=== PATIENT | female | born 1975 | race Caucasian/White ===

== ENCOUNTER 2018-03-11 04:21 | Emergency (ER) | payer OTHER, SELFPAY ==
[2018-03-11 04:22] VITALS: BP 135/75; PULSE 104; RESP 20; TEMP 36.8; O2SAT 99; BMI 21.3
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
[2018-03-11 05:09] VITALS: BP 135/75; PULSE 104; RESP 20; O2SAT 97
== END 2018-03-11 05:24 | disposition home or self-care (01) ==
LOC: ED 05:03
PROVIDERS: Emergency Provider Emergency Medicine
DX: S80.12XA Contusion of left lower leg, initial encounter (principal); S80.11XA Contusion of right lower leg, initial encounter; S80.812A Abrasion, left lower leg, initial encounter; S80.811A Abrasion, right lower leg, initial encounter; V89.2XXA Person injured in unspecified motor-vehicle accident, traffic, initial encounter; Y93.89 Activity, other specified; Z72.0 Tobacco use
CPT/HCPCS: 99284; A4216

== ENCOUNTER 2020-02-06 08:01 | Outpatient (RCR) | payer OTHER, SELFPAY | END 2020-02-06 23:59 | disposition home or self-care (01) | LOC: EMPH 08:01 | PROVIDERS: Visit Provider Family Medicine Geriatric Medicine | DX: Z11.59 Encounter for screening for other viral diseases (principal) | CPT/HCPCS: 87635; U0003 ==

== ENCOUNTER 2020-03-05 08:57 | Outpatient (RCR) | payer OTHER, SELFPAY | END 2020-03-09 23:59 | LOC: EMPH 08:57 | PROVIDERS: Visit Provider Family Medicine Geriatric Medicine | DX: Z03.818 Encounter for observation for suspected exposure to other biological agents ruled out (principal) | CPT/HCPCS: 87426 ==

== ENCOUNTER 2020-04-01 14:11 | Outpatient (RCR) | payer OTHER, SELFPAY | END 2020-04-08 23:59 | LOC: EMPH 14:11 | PROVIDERS: Visit Provider Family Medicine Geriatric Medicine | DX: Z03.818 Encounter for observation for suspected exposure to other biological agents ruled out (principal) | CPT/HCPCS: 87426 ==

== ENCOUNTER → 2021-01-15 | Outpatient (CLI) | payer OTHER, SELFPAY | END | disposition home or self-care (01) | LOC: LABSPEC 13:46 | PROVIDERS: Visit Provider Physician Assistant | DX: Z20.822 Contact with and (suspected) exposure to COVID-19 (principal) | CPT/HCPCS: 87635; U0005; U0003 ==

== ENCOUNTER → 2021-10-01 | Outpatient (CLI) | payer OTHER, SELFPAY ==
[2021-10-01 14:27] LABS: Absolute Lymphocyte Count 2.03 X10^3/uL (0.83-4.51); Absolute Neutrophil Count 4.9 X10^3/uL (2.0-7.7); Basophil# 0.05 X10^3/uL; Basophil% 0.6 % (0-1); Eosinophil# 0.13 X10^3/uL; Eosinophils% 1.7 % (0-5); Hematocrit 42.7 % (37-47); Hemoglobin 14.1 g/dL (12.0-15.0); Lymphocyte # 2.03 X10^3/ul (0.83-4.51); Lymphocyte % 26.1 % (19-41); Mean Corpuscular Volume 90.9 fL (81-99); Mean Platelet Vol. 8.6 fl (6.2-12.0); Monocyte# 0.61 X10^3/uL; Monocyte% 7.9 % (0-10); NRBC Flagged by Analyzer 0 % (0-5); Neutrophil # 4.93 X10^3/uL (2.7-7.7); Neutrophil % 63.4 % (47-70); Platelet Count 286 K/mm3 (150-450); RBC Distribution Width CV 12.8 % (11.6-14.6); RBC Distribution Width SD 43.2 fl (35.1-43.9); White Blood Count 7.8 K/mm3 (4.4-11.0)
[2021-10-01 14:48] LABS: Thyroid Stim Hormone (TSH) 0.89 uIU/mL (0.358-3.74)
[2021-10-08 09:21] LABS: HPV APTIMA, High Risk Negative (Negative)
== END | disposition home or self-care (01) ==
LOC: PAVLAB 14:09
PROVIDERS: Referring Provider Nurse Practitioner Women's Health; Visit Provider Nurse Practitioner Women's Health
DX: Z13.29 Encounter for screening for other suspected endocrine disorder (principal); Z12.4 Encounter for screening for malignant neoplasm of cervix; N92.0 Excessive and frequent menstruation with regular cycle
CPT/HCPCS: 36415; 84443; 85025; 87624; 88175; G0145

== ENCOUNTER → 2021-10-10 | Outpatient (CLI) | payer OTHER, SELFPAY ==
--- NOTE | 2021-10-10 12:13 | BI_ITS ---
MAMMOGRAPHY - BILATERAL SCREENING REASON FOR EXAM: Female, 46 years old. Routine annual screening examination. PERTINENT HISTORY: Non-contributory. TECHNIQUE: Digital bilateral breast erwin (3D mammographic acquisition) in the CC and MLO projections. 2-D mediolateral oblique (MLO) and craniocaudad (CC) views of both breasts were obtained. CAD: Full Field Digital Mammography with Computer Added Detection was performed. COMPARISON: None. Baseline examination. FINDINGS: Breast Composition: The breasts are extremely dense, which lowers the sensitivity of mammography. There are no dominant masses or suspicious calcifications. No other significant abnormalities are identified. BI/SCRN MAMM (CAD)W/ERWIN BILAT IMPRESSION: Negative screening mammogram. Yearly followup mammogram recommended. (A) ASSESSMENT CATEGORY: BIRADS Category 1: Negative. A letter regarding these results will be sent to the patient by the facility within 30 days. Approximately 10% of breast cancers are not detected by mammography. A normal mammogram should not delay biopsy of a clinically suspicious abnormality. [id number] Electronically Signed: Adán Vazquez MD at 12:55 EDT ,
== END | disposition home or self-care (01) ==
LOC: OPBI 12:10
PROVIDERS: Referring Provider Nurse Practitioner Women's Health; Visit Provider Nurse Practitioner Women's Health
DX: Z12.31 Encounter for screening mammogram for malignant neoplasm of breast (principal)
CPT/HCPCS: 77063; 77067

== ENCOUNTER → 2021-10-13 | Outpatient (CLI) | payer OTHER, SELFPAY ==
--- NOTE | 2021-10-13 12:57 | US_ITS ---
STUDY: ULTRASOUND OF THE FEMALE PELVIS - COMPLETE REASON FOR EXAM: Female, 46 years old. Pelvic pain -- BLEEDING X 1 YEAR -- MENORRHAGIA -- HX OF ECTOPIC 1999 -- CLIPS ON TUBES 2000 LMP: Unknown. TECHNIQUE: Transabdominal and Transvaginal TECHNICAL QUALITY: Adequate. COMPARISON: None. FINDINGS: The uterus is anteverted and is in a midline position. The uterus measures 9.1 cm x 6.2 cm x 4 cm. Normal uterine cervix. The endometrium is thickened and measures 13 mm in thickness, and is fluid distended. There is no demonstrated endometrial mass. There is no demonstrated myometrial mass. I.U.D. - The patient does not have an I.U.D. The right ovary is visualized. The right ovary measures 3.2 cm x 1.9 cm x 1.4 cm. A dominant follicle is seen within it measuring 1.4 cm x 1.3 cm x 1.1 cm. There is no visualized right adnexal mass or complex lesion. There is normal arterial and normal venous vascularity. The left ovary is visualized. The left ovary measures 2.7 cm x 2 cm x 1.5 cm. The dominant follicle is seen measuring 1.3 cm x 1.1 cm x 1 cm. There is no visualized left adnexal mass or complex lesion. There is normal arterial and normal venous vascularity. There is no fluid in the cul-de-sac. The pre void volume of the bladder was 110 ml. US/Transvaginal Non- IMPRESSION: Fluid distended endometrial thickening. Small bilateral ovarian follicles. Electronically Signed: Adán Vazquez MD at 15:47 EDT ,
--- NOTE | 2021-10-13 12:57 | US_ITS ---
STUDY: ULTRASOUND OF THE FEMALE PELVIS - COMPLETE REASON FOR EXAM: Female, 46 years old. Pelvic pain -- BLEEDING X 1 YEAR -- MENORRHAGIA -- HX OF ECTOPIC 1999 -- CLIPS ON TUBES 2000 LMP: Unknown. TECHNIQUE: Transabdominal and Transvaginal TECHNICAL QUALITY: Adequate. COMPARISON: None. FINDINGS: The uterus is anteverted and is in a midline position. The uterus measures 9.1 cm x 6.2 cm x 4 cm. Normal uterine cervix. The endometrium is thickened and measures 13 mm in thickness, and is fluid distended. There is no demonstrated endometrial mass. There is no demonstrated myometrial mass. I.U.D. - The patient does not have an I.U.D. The right ovary is visualized. The right ovary measures 3.2 cm x 1.9 cm x 1.4 cm. A dominant follicle is seen within it measuring 1.4 cm x 1.3 cm x 1.1 cm. There is no visualized right adnexal mass or complex lesion. There is normal arterial and normal venous vascularity. The left ovary is visualized. The left ovary measures 2.7 cm x 2 cm x 1.5 cm. The dominant follicle is seen measuring 1.3 cm x 1.1 cm x 1 cm. There is no visualized left adnexal mass or complex lesion. There is normal arterial and normal venous vascularity. There is no fluid in the cul-de-sac. The pre void volume of the bladder was 110 ml. US/Pelvic (Non ) IMPRESSION: Fluid distended endometrial thickening. Small bilateral ovarian follicles. Electronically Signed: Adán Vazquez MD at 15:47 EDT ,
== END | disposition home or self-care (01) ==
LOC: US 12:56
PROVIDERS: Referring Provider Nurse Practitioner Women's Health; Visit Provider Nurse Practitioner Women's Health
DX: N85.2 Hypertrophy of uterus (principal); N83.01 Follicular cyst of right ovary; N83.02 Follicular cyst of left ovary; R93.89 Abnormal findings on diagnostic imaging of other specified body structures
CPT/HCPCS: 76830; 76856; 93976

== ENCOUNTER → 2021-10-24 | Outpatient (CLI) | payer OTHER, SELFPAY ==
--- NOTE | 2021-10-24 | EMB_PTH ---
PATIENT: SANDRA SINGLETARY LOC: [facility] U#:[id number] AGE/SX: 46/F ROOM: RE10/24/[address]: Dr. 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 Focal stromal breakdown. AM:leeanna 10/27/2021 MICROSCOPIC DESCRIPTION Slides are reviewed. GROSS DESCRIPTION Received is one container labeled with the patient's name and not further designated. The specimen consists of multiple irregular fragments of li mucoid tissue that in aggregate measure 2.5 x 2 x 0.1 cm. The specimen is totally submitted in one cassette. / SJ:leeanna 10/24/2021 TC:5 CPT: 92584
== END | disposition home or self-care (01) ==
LOC: LABSPEC 11:59
PROVIDERS: Referring Provider Obstetrics & Gynecology; Visit Provider Obstetrics & Gynecology
DX: N85.01 Benign endometrial hyperplasia (principal); N93.9 Abnormal uterine and vaginal bleeding, unspecified
CPT/HCPCS: 88305

== ENCOUNTER 2021-11-25 12:36 | Day surgery (SDC) | payer OTHER, SELFPAY ==
--- NOTE | 2021-11-24 16:36 | HP.PCM_ITS ---
History and Physical Intake Vital Signs ? 10/01/2212:41 10/14/2208:15 10/24/2209:21 Height 5 ft 5 in 5 ft 5 in 5 ft 5 in Weight: ? 125 lb ? BMI ? 20.7 ? BP ? 128/70 H ? 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 And Repairer Required: No Is patient in pain?: No Allergies No Known Allergies Allergy (Verified 10/01/21 13:34) Medications cetirizine 10 mg capsule (Zyrtec) 10 mg PO DAILY PRN 10/01/21 [History Confirmed 10/24/21] multivitamin with minerals (Hair,Skin and Nails) 1 tab PO DAILY 10/01/21 [History Confirmed 10/24/21] norethindrone acetate 5 mg tablet (Aygestin) 5 mg PO .COMPLEX #45 tabs 10/01/21 [Rx Confirmed 10/24/21] pseudoephedrine HCl 30 mg tablet (Sudafed) 30 mg PO ONCE 10/01/21 [History Confirmed 10/24/21] megestrol 40 mg tablet 40 mg PO BID #60 tabs 10/24/21 [Rx Confirmed 10/24/21] Is last menstrual period known: No Post menopausal: No Patient : No : No Nurse's Note: declines UPT ON LICENSE OF [facility] Surgical History? H/O tubal ligation History of cholecystectomy S/P removal of ovarian cyst Family History? Mother COPD (chronic obstructive pulmonary disease) Alzheimer's dementia Heart disease HypertensionFather Heart disease Aortic aneurysmGrandmother Heart disease Diabetes CancerUncle Lung cancer Social History? household members:? children current occupational status:? employed current occupation:? [employer] Smoking Status:? Current every day smoker alcohol intake:? never substance use type:? does not use diet:? other what type of physical activity do you participate in:? walking frequency:? 3-4 times per week seatbelt use:? always do you feel safe at home:? Yes additional social history:? single HPI discuss surgical options Details: SANDRA SINGLETARY is a 46 year old who presents for heavy irregular bleeding.? she has a lifetime history of heavy menses but the last year has included bleeding most days and now she has been on aygestin 2-3x daily and is still bleeding through.? she has intermittent cramping and tried aygestin but is still having breakthrough bleeding and wants to have surgical management of her heavy menses. Pregancy History ? ? ? 5 ? Elective abortions ? Hx Para ? ? ? 3 ? Spontaneous abortions ? Hx # Term Pregnancies ? Ectopic pregnancies ? Hx # Pregnancies ? Multiple births ? # of living children ? ? ? 3 ROS Const Constitutional: Denies fatigue, fever(s), headache(s), increased appetite, poor appetite, weight gain or weight loss Cardio Card: Denies chest pain Resp Resp: Denies cough or dyspnea GI GI: Reports as per HPI; Denies abdominal pain, constipation, nausea or vomiting : Reports as per HPI; Denies difficulty voiding, dysuria, nipple discharge, urinary frequency, urinary incontinence, urinary hesitancy, urinary urgency, vaginal discharge, vaginal dryness, vaginal odor or vaginal pruritus Skin Skin/Breast: Denies change in hair, breast mass, breast pain, breast skin changes or nipple discharge Exam Const General: cooperative, healthy appearing, comfortable, no acute distress and well developed Nutritional Appearance: average body habitus Orientation: alert [facility] Head: normal to inspection and normocephalic Neck Neck: normal visual inspection and trachea midline Thyroid: thyroid normal Resp Effort & Inspection: normal respiratory effort GI Inspection: normal to inspection and non-distended Palpation: soft and no hepatosplenomegaly General: bladder normal to palpation External Female Exam: normal external appearance and normal appearance of the urethra Urethra: normal appearance of the urethra, normal palpation and no discharge Speculum Exam - Vagina: normal appearance of the vagina and normal vaginal discharge Speculum Exam - Cervix: normal appearance of the cervix and nontender Bimanual Exam- Vagina & Uterus: normal bimanual exam, uterine size normal, bladder normal to palpation, uterine shape normal, No tender, uterine mobility normal, consistency normal, normal palpation and non-tender Bimanual Exam- Adnexa, other: normal adnexae, adnexae mobile, no masses and normal Pelvic Support: normal Skin General: no rashes or lesions noted Office Procedures Endometrial Biopsy Endometrial Biopsy Test: Yes Not Applicable Consent Signed: Yes Time out checklist: patient, procedure, site marked/identified, positioning of patient, supplies available, allergies confirmed and team agrees on procedure tenaculum used: No dilator used: No Details: Cervix prepped with betadine and pipelle inserted into uterus without complication. Specimen obtained and sent to lab for analysis. All instruments removed from vagina without complications. Excellent hemostasis noted. Coding Level of Care Code Off vis,est,level 4 Diagnoses Menorrhagia with regular cycle? N92.0 CPT Codes Endometrial Biopsy (89792) Assessment and Plan Assessment and Plan (1) Menorrhagia with regular cycle: ?Status:?Acute ?Comment: plan jai ablation.? emb done nl labs and US. megace ? ? ? Orders: Orders Endometrial Biopsy Today ? Medications: New megestrol ?? 2-3x daily until bleeding stop for three days then once daily until gone. 40 mg? PO BID 60 tabs 1RF ? ? Plan After discussing the patient's diagnosis and treatment plan options, patient wishes to proceed with surgical management.? I have discussed with the patient the risks, benefits, and alternatives of the procedure which include but are not limited to risks of anesthesia, bleeding, infection, possible damage to bowel, bladder, or surrounding vasculature which could lead to additional surgery to evaluate any complications.? Patient agrees to procedure and wishes to proceed.? ACOG/uptodate references given for additional information regarding procedure.? UPDATE- I have seen the patient and performed any clinically relevant updates to the history and physical exam. Antoinette Coffey MD
[2021-11-25] VITALS (7 sets, daily range): BP systolic 109–129; BP diastolic 64–95; PULSE 77–91; RESP 16–18; TEMP 36.3–37.1; O2SAT 95–100; BMI 20.5
[2021-11-25 13:21] LABS: Basophil# 0.03 X10^3/uL; Basophil% 0.4 % (0-1); Eosinophil# 0.09 X10^3/uL; Eosinophils% 1.2 % (0-5); Hematocrit 40.4 % (37-47); Hemoglobin 12.9 g/dL (12.0-15.0); Lymphocyte % 27.2 % (19-41); Mean Corp Hgb Conc 31.9 g/dL (32-36); Mean Corpuscular Hgb 29.6 pg (27.0-32.0); Mean Corpuscular Volume 92.7 fL (81-99); Mean Platelet Vol. 8.6 fl (6.2-12.0); Monocyte% 6.5 % (0-10); NRBC Flagged by Analyzer 0 % (0-5); Neutrophil # 4.99 X10^3/uL (2.7-7.7); Neutrophil % 64.4 % (47-70); Platelet Count 327 K/mm3 (150-450); RBC Distribution Width CV 13.2 % (11.6-14.6); RBC Distribution Width SD 45.3 fl (35.1-43.9); Red Blood Count 4.36 M/mm3 (4.2-5.4); White Blood Count 7.7 K/mm3 (4.4-11.0)
[2021-11-25] MEDS: Lactated Ringers 1,000 ML 15 ML IV (13:24)
--- NOTE | 2021-11-25 14:10 | EMB_PTH ---
PATIENT: SANDRA SINGLETARY [place] [facility] [place] U[place][id number] AGE/SX: 46/F ROOM: RE11/25/[address]: Dr. Antoinette Coffey MD : 1975 BED: DIS: 11/25/2021 SPEC #: [id number] RECD: 11/25/21 15:48 STATUS: JAZZY BELTRE #: [id number] RONAK: 11/25/21 14:[address]: Antoinette Coffey DEPT: SURGICAL PATHOLOGY RECD BY: Keagan Red ENTERED: 11/26/21 07:33 SP TYPE: ENDOM BX/C JUANCARLOS DR: No Primary Care Phys Tissues: Endometrium, NOS Procedures: Surgery Specimen Level IV HEADER OPERATION: Dilation and curettage, hysteroscopy ablation, Precious PRE-OP DIAGNOSIS: Menorrhagia with regular cycle TISSUE SUBMITTED: Endometrial curettings MICROSCOPIC DIAGNOSIS Endometrium, curettings: Proliferative endometrium with focal glandular breakdown. Mild chronic endometritis. AM:leeanna 11/27/2021 MICROSCOPIC DESCRIPTION Slides are reviewed. GROSS DESCRIPTION Received in fixative is one container labeled with the patient's name and designated endometrial curettings. The specimen consists of multiple irregular fragments of dark li soft tissue that in aggregate measure 2.2 x 2 x 0.2 cm. The specimen is totally submitted in one cassette. / AM:leeanna 11/26/2021 TC:3 CPT: 83192
--- NOTE | 2021-11-25 14:11 | PCM.OPRPT ---
Report of Operation Pre-Operative Diagnosis: see problem list Post-Operative Diagnosis: same Surgery/Procedure Performed:: d and c hysteroscopy precious ablation Description of Surgical Findings:: nl uterine cavity returned goods repairer: None Type of Anesthesia: Local MAC Special Medications: none Specimen's removed: emc Drains: none Estimated Blood Loss (mL): 50 Fluids Replaced: crystalloid Description of Procedure: Patient was prepped and draped in a normal sterile fashion under MAC anesthesia. A weighted speculum was placed in the vagina and the anterior lip of the cervix was grasped with a single-tooth tenaculum. A paracervical block was placed with 1% lidocaine. Cervix was progressively dilated to allow passage of a 5 mm hysteroscope. The lining was fully visualized and noted to have a thickened appearance . Uterine sounded to 9 cm. Curettage was performed and moderate tissue removed , sent to pathology. The Precious device was opened and the cavity length was found to be 5 cm. Device was inserted into the uterus and balloon inflated and device deployed. Integrity of the cavity was confirmed and a 2 minute treatment cycle was completed without complication. All instruments were removed from the vagina and excellent hemostasis was noted. Patient was awoken and taken to recovery in stable condition. Grafts/Implants Used: none Complications none Admit VTE Documentation VTE Present on Admission: No VTE Mechan Device Prophylaxis: SCD's Multi Select Codes Urinary/Genital Urinary/Genital CPT Codes: 19677 Precious/Novasure
--- NOTE | 2021-11-25 14:13 | DCINST_ITS ---
Discharge Instructions Follow Up Care Test Results: Test results from this visit will be discussed in further detail at your follow- up appointment, if applicable. Discharge Plan Admission Attending Provider: Antoinette Coffey Primary Care Provider: Care Physician,Bernie Primary Discharge Orders/Prescriptions Prescriptions: No Action Hair,Skin and Nails Tablet 1 tab PO DAILY Zyrtec 10 mg capsule 10 mg PO DAILY PRN (Reason: ALLERGIES) Referrals / Follow Up: Care Physician,No Primary [Primary Care Provider] -
--- NOTE | 2021-11-25 14:25 | DCINST_ITS ---
Discharge Instructions Procedure D&C Diet Discharge Diet: No restrictions Activity Discharge Activity: Return to Normal Activity, May Shower and May Take a Tub Bath (after 1 week) May resume sexual activity in: 1-2 weeks Weight Bearing Status: Weight bearing as tolerated Lifting Restrictions: none Dressing / Incision Call your doctor if you observe: Fever of 101 or Higher, Using more than 1 pad per hour, Shortness of breath and Uncontrolled pain Follow Up Care Please Follow Up With: Antoinette Coffey MD When: Call [phone] to schedule appointment. Test Results: Test results from this visit will be discussed in further detail at your follow- up appointment, if applicable. Discharge Plan Admission Attending Provider: Antoinette Coffey Primary Care Provider: Care Physician,Bernie Primary Discharge Orders/Prescriptions Prescriptions: No Action Hair,Skin and Nails Tablet 1 tab PO DAILY Zyrtec 10 mg capsule 10 mg PO DAILY PRN (Reason: ALLERGIES) Referrals / Follow Up: Care Physician,No Primary [Primary Care Provider] - Disposition Disposition (needs filled in before D/C Order can be placed): Home, Self Care
[2021-11-25] MEDS: Lidocaine 1% (20 ml mdv) 20 ML Vial (14:52)
== END 2021-11-25 16:02 | disposition home or self-care (01) ==
LOC: SDC 12:38 → AC 12:38
PROVIDERS: Referring Provider Obstetrics & Gynecology; Visit Provider Obstetrics & Gynecology
PROC: 0U5B8ZZ Destruction of Endometrium, Via Natural or Artificial Opening Endoscopic (ICD-10-PCS; CPT 58558; principal; 2021-11-25 13:55)
DX: N71.1 Chronic inflammatory disease of uterus (principal); N92.0 Excessive and frequent menstruation with regular cycle; F17.200 Nicotine dependence, unspecified, uncomplicated
CPT/HCPCS: 58563; 00952; 85025; 86850; 86900; 86901; 88305; J7120; J2405

== ENCOUNTER 2023-02-18 21:43 | Outpatient (CLI) | payer SELFPAY | END 2023-02-18 23:59 | disposition home or self-care (01) | LOC: LAB 21:49 | DX: U07.1 COVID-19 (principal) | CPT/HCPCS: 87811 ==

== ENCOUNTER 2023-11-02 20:18 | Emergency (ER) | payer OTHER, SELFPAY ==
[2023-11-02 20:19] VITALS: BP 108/62; PULSE 123; RESP 19; TEMP 36.6; O2SAT 98; BMI 21.2
[2023-11-02 20:27] VITALS: BMI 21.2
--- NOTE | 2023-11-02 20:30 | EDS_ITS ---
HPI History of Present Illness Chief Complaint: Palpitations Informant: patient Narrative Narrative: 48-year-old female presenting to the emergency room chief complaint of palpitations. 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 Nurse took vital signs which showed heart rate around 240 and noted that she was pale and diaphoretic. Symptoms have subsequently resolved. She states this is never happened to her before. She states she currently takes no medications other than a biotin supplement. She did not have any chest pain prior to the event. No recent trips or DVT PE risk factors. She is a smoker. PFSH [facility] Medical History Allergic contact dermatitis due to plant Wears contact lenses Wears partial dentures Wears dentures Smoker Home Medications ?Medication ?Instructions ?Recorded ?Last Taken ?Type cetirizine 10 mg capsule (Zyrtec) 10 mg PO DAILY PRN ALLERGIES 10/01/21 Unknown History multivitamin with minerals 1 tab PO DAILY 10/01/21 Unknown History (Hair,Skin and Nails tablet) Allergy/AdvReac Type Severity Reaction Status Date / Time No Known Allergies Allergy Verified 11/02/23 20:30 Family History Mother COPD (chronic obstructive pulmonary disease) Alzheimer's dementia Heart disease Hypertension Father Heart disease Aortic aneurysm Grandmother Heart disease Diabetes Cancer Uncle Lung cancer Surgical History S/P removal of ovarian cyst History of cholecystectomy H/O tubal ligation Social History household members: children current occupational status: employed 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 Smoking Status: Current every day smoker tobacco type: cigarettes alcohol intake: never substance use type: does not use diet: other what type of physical activity do you participate in: walking frequency: 3-4 times per week seatbelt use: always do you feel safe at home: Yes additional social history: single ROS ROS ED Constitutional Constitutional ED: Denies chills, fever(s) or weight loss Eyes Eyes: Denies change in vision or diplopia ENT ENT ED: Denies ear pain, rhinorrhea or sore throat Cardiovascular Cardiovascular: Reports as per HPI, palpitations and racing heartbeat; Denies c hest pain or orthopnea Respiratory/Chest Respiratory/Chest: Denies cough, dyspnea or orthopnea Gastrointestinal Gastrointestinal: Denies abdominal pain, diarrhea, nausea or vomiting Genitourinary Genitourinary ED: Denies dysuria, hematuria or urinary frequency Musculoskeletal Musculoskeletal: Denies arthralgias or myalgias Integumentary Denies abscess or rash Neurologic Neurologic: Denies headache(s) or weakness Psychiatric Psychiatric: Denies anxiety, depression, suicidal ideation or suicidal thoughts Endocrine Endocrinology: Denies polydipsia, polyphagia or polyuria Allergic/Immunologic Allergic/Immunologic ED: Denies mouth swelling, tongue swelling or urticaria EXAM Physical Exam Const Vital Signs: 11/02/23 20:19 11/02/23 20:28 11/02/23 21:18 Temperature 97.9 F Temperature Source Oral Pulse Rate 123 H 101 H Respiratory Rate 19 H 13 Respiratory Effort Normal Non-Labored Blood Pressure 108/62 116/75 Blood Pressure Mean 77 88 Pulse Ox 98 96 Oxygen Delivery Method Room Air Room Air 11/02/23 22:04 Temperature 97.6 F L Temperature Source Pulse Rate 103 H Respiratory Rate 34 H Respiratory Effort Blood Pressure 115/76 Blood Pressure Mean 89 Pulse Ox 98 Oxygen Delivery Method Positive well nourished and well developed General Appearance ED: well developed HEENT Reports normocephalic, head/scalp atraumatic and moist mucous membranes Eyes PERRL and EOMs intact bilaterally Neck no lymphadenopathy, supple and no JVD Resp normal respiratory effort and clear to auscultation bilaterally Cardio regular rate, regular rhythm and no murmurs Rate: tachycardic GI normal to inspection, nondistended, normoactive bowel sounds and non-tender Palpation: soft Back/Spine no CVA tenderness and normal ROM Extremity normal to inspection General Extremety ED: Negative for edema General Extremity: Negative for edema Neuro oriented x3 and CN's II-XII intact bilaterally Sensorium / Orientation: alert Motor Exam: strength 5/5 throughout Psych mental status grossly normal Mood & Affect: Negative for depressed or tearful Skin no rashes or lesions noted and no wounds MDM MDM MDM Narrative Medical decision making narrative: Differential diagnosis includes SVT valvular heart disease hypothyroidism electrolyte abnormalities ingestion anemia. Patient heart rate has remained around 100 and appears sinus on the monitor. Basic blood work is fairly unremarkable. TSH is normal magnesium potassium sodium within normal limits. My independent interpretation of the chest x-ray is no acute process normal mediastinal silhouette. Patient has no history of valvular heart disease, no significant caffeine intake in fact she states she is cut down significantly recently. The patient was discussed with Dr. Narayanan from cardiology. She will be discharged home with cardiology follow-up. We discussed beta-kylah or other rate control agent at this time as this is her first episode we will hold off. Patient understands return instructions History & Record Review Discussion w/independent historian: Patient Lab Data Attestation: I reviewed the patient's lab results. Labs: Laboratory Results - last 24 hr 11/02/23 20:25 WBC 8.8 RBC 5.14 Hgb 15.3 H Hct 47.1 H MCV 91.6 MCH 29.8 MCHC 32.5 RDW Std Deviation 43.7 RDW Coeff of Jarett 12.9 Plt Count 403 MPV 9.0 Immature Gran % (Auto) 0.200 Neut % (Auto) 57.5 Lymph % (Auto) 32.1 Lamar % (Auto) 7.7 Eos % (Auto) 1.5 Baso % (Auto) 1.0 Absolute Neuts (auto) 5.0 Absolute Lymphs (auto) 2.81 Nucleated RBC % 0 Sodium 138 Potassium 3.6 Chloride 105 Carbon Dioxide 26.0 Anion Gap 7 BUN 12 Creatinine 0.82 Estim Creat Clear Calc 77.14 Est GFR (MDRD) Af Amer 96 Est GFR (MDRD) Non-Af 80 BUN/Creatinine Ratio 14.7 Glucose 132 H Calcium 9.5 Magnesium 2.3 TSH 0.83 Radiography Diagnostic Testing: Clinical Impression(s) from Imaging Studies Chest X-Ray 11/02/23 20:30 IMPRESSION: No radiographic evidence of acute cardiopulmonary disease. Electronically Signed: Trell Guzman DO at 21:02 EDT , EKG Initial EKG: Attestation: I personally reviewed and interpreted this EKG as follows: Comments: Sinus tachycardia ventricular rate of 120 bpm. Management Discussion w/another healthcare provider: Cd Technician (Dr. Narayanan (Cardiology)) Discharge Plan Triage Chief Complaint: Palpitations ED Provider: Dario Dos Santos Dx/Rx/DC Orders Clinical Impression: SVT (supraventricular tachycardia), Near syncope Instructions: ED Understanding Supraventricular Tachycardia (SVT) Prescriptions: No Action Hair,Skin and Nails Tablet 1 tab PO DAILY Zyrtec 10 mg capsule 10 mg PO DAILY PRN (Reason: ALLERGIES) Stand Alone Forms: ED Work / School Excuse Primary Care Provider: Care Physician,No Primary Referrals: Rogelio Narayanan MD [Med Staff - Active Staff] - As soon as possible (for cardiology evalulation) Care Physician,No Primary [Primary Care Provider] - Print Language: Icelandic Disposition Disposition: Home, Self Care Discharge Date/Time: 11/02/23 22:13
--- NOTE | 2023-11-02 20:30 | EKG12_ITS ---
Test Reason : DYSRHYTHMIA Blood Pressure : / mmHG Vent. Rate : 120 BPM Atrial Rate : 120 BPM P-R Int : 162 ms QRS Dur : 074 ms QT Int : 288 ms P-R-T Axes : 075 066 073 degrees QTc Int : 407 ms Sinus tachycardia OTHERWISE NORMAL Confirmed by Rogelio Narayanan ([id number]), writer editor BROOKLYNN GARNER ([id number]) on 11/03/2023 9:20:23 AM Referred By: Confirmed By:Rogelio Narayanan
--- NOTE | 2023-11-02 20:30 | RAD_ITS ---
EXAM: XR CHEST, 1 VIEW CLINICAL INDICATION: chest pain TECHNIQUE: Frontal view of the chest. COMPARISON: No relevant prior studies available. FINDINGS: LUNGS AND PLEURAL SPACES: No significant abnormality. No consolidation or edema. No pneumothorax. No effusion. HEART: No significant abnormality. Cardiac silhouette not enlarged. MEDIASTINUM: Central airways and mediastinal contour are unremarkable. BONES/JOINTS: No significant abnormality. No acute fracture. SOFT TISSUES: No significant abnormality. RAD/Chest 1 View (Portable) IMPRESSION: No radiographic evidence of acute cardiopulmonary disease. Electronically Signed: Trell Guzman DO at 21:02 EDT ,
[2023-11-02 20:42] LABS: Absolute Lymphocyte Count 2.81 X10^3/uL (0.83-4.51); Basophil# 0.09 X10^3/uL; Eosinophil# 0.13 X10^3/uL; Eosinophils% 1.5 % (0-5); Hematocrit 47.1 % (37-47); Hemoglobin 15.3 g/dL (12.0-15.0); Lymphocyte # 2.81 X10^3/ul (0.83-4.51); Lymphocyte % 32.1 % (19-41); Mean Corp Hgb Conc 32.5 g/dL (32-36); Mean Corpuscular Hgb 29.8 pg (27.0-32.0); Mean Corpuscular Volume 91.6 fL (81-99); Monocyte# 0.67 X10^3/uL; Monocyte% 7.7 % (0-10); NRBC Flagged by Analyzer 0 % (0-5); Neutrophil # 5.03 X10^3/uL (2.7-7.7); Neutrophil % 57.5 % (47-70); Platelet Count 403 K/mm3 (150-450); RBC Distribution Width CV 12.9 % (11.6-14.6); RBC Distribution Width SD 43.7 fl (35.1-43.9); Red Blood Count 5.14 M/mm3 (4.2-5.4); White Blood Count 8.8 K/mm3 (4.4-11.0)
[2023-11-02 21:16] LABS: Anion Gap 7 (5-15); BUN 12 mg/dL (7-18); BUN/Creat Ratio 14.7 RATIO (10-20); Calcium,Total 9.5 mg/dL (8.5-10.1); Chloride 105 mmol/L (98-107); Creatinine, Serum 0.82 mg/dL (0.55-1.02); EST Glomerular Filtration Rate 80 mL/min (>60); Est Glom Filt Rate - Afr Amer 96 mL/min (>60); Estimated Creatinine Clearance 77.14 ml/min; Glucose 132 mg/dL (74-106); Magnesium 2.3 mg/dL (1.6-2.6); Potassium 3.6 mmol/L (3.5-5.1); Sodium Level 138 mmol/L (136-145); Thyroid Stim Hormone (TSH) 0.83 uIU/mL (0.358-3.74)
[2023-11-02 21:18] VITALS: BP 116/75; PULSE 101; RESP 13; O2SAT 96
[2023-11-02 22:04] VITALS: BP 115/76; PULSE 103; RESP 34; TEMP 36.4; O2SAT 98
[2023-11-02] MEDS: Ibuprofen 600 MG Tablet PO (22:10)
== END 2023-11-02 22:13 | disposition home or self-care (01) ==
PROVIDERS: Emergency Provider Emergency Medicine; Visit Provider Emergency Medicine
DX: R00.2 Palpitations (principal); I47.10 Supraventricular tachycardia, unspecified; R55 Syncope and collapse; Z90.49 Acquired absence of other specified parts of digestive tract; Z98.51 Tubal ligation status; F17.210 Nicotine dependence, cigarettes, uncomplicated
CPT/HCPCS: 71045; 80048; 83735; 84443; 85025; 93005; 99283; A4216

== ENCOUNTER 2023-12-15 19:36 | Emergency (ER) | payer OTHER, SELFPAY ==
[2023-12-15 19:36] VITALS: BP 143/87; PULSE 101; RESP 14; TEMP 35.9; O2SAT 98; BMI 21.2
--- NOTE | 2023-12-15 19:40 | EDS_ITS ---
HPI History of Present Illness Chief Complaint: Palpitations [facility] Medical History Palpitations SVT (supraventricular tachycardia) Near syncope Allergic contact dermatitis due to plant Home Medications ?Medication ?Instructions ?Recorded ?Last Taken ?Type cetirizine 10 mg capsule (Zyrtec) 10 mg PO DAILY PRN ALLERGIES 10/01/21 Unknown History multivitamin with minerals 1 tab PO DAILY 10/01/21 Unknown History (Hair,Skin and Nails tablet) Allergy/AdvReac Type Severity Reaction Status Date / Time No Known Allergies Allergy Verified 12/15/23 19:37 Family History Mother COPD (chronic obstructive pulmonary disease) Alzheimer's dementia Heart disease Hypertension Father Heart disease Aortic aneurysm Grandmother Heart disease Diabetes Cancer Uncle Lung cancer Surgical History S/P removal of ovarian cyst History of cholecystectomy H/O tubal ligation Social History household members: children current occupational status: employed 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 Smoking Status: Current every day smoker tobacco type: cigarettes alcohol intake: never substance use type: does not use diet: other what type of physical activity do you participate in: walking frequency: 3-4 times per week seatbelt use: always do you feel safe at home: Yes additional social history: single EXAM Physical Exam Const Vital Signs: 12/15/23 19:36 Temperature 96.7 F L Temperature Source Temporal Pulse Rate 101 H Respiratory Rate 14 Blood Pressure 143/87 H Blood Pressure Mean 105 Pulse Ox 98 MDM MDM MDM Narrative Medical decision making narrative: HISTORY OF PRESENT ILLNESS: 48-year-old female presents with concern for heart pounding. Note this began just prior to arrival. Notes heart rate was checked at this time and it was in the 140s. Patient does note feeling faint earlier today but denies symptoms at this time. The patient denies recent surgery in the last 4 weeks or immobilization in the last 3 days, denies previous diagnosis of DVT or PE, hemoptysis, unilateral leg swelling or malignancy with treatment the last 6 months or palliative. No estrogen use noted. REVIEW OF SYSTEMS: Pertinent positives: Palpitations Pertinent negatives: Chest pain, shortness of breath, leg swelling PHYSICAL EXAM: Nursing triage notes reviewed, Vital signs reviewed Constitutional: please see mdm HENT: MMM Eyes: Pupils equal round and reactive to light, Extraocular muscles intact Neck: No stridor, no JVD, full neck ROM Lungs: Clear to auscultation, No wheezing or rales. No increased work of breathing, no conversational dyspnea, no accessory muscle use, no nasal flaring. No respiratory distress noted Heart: Regular rate and rhythm, No murmurs, No rubs and No gallops, 2+ distal pulses (radial, femoral, posterior tibial) in all extremities Abdomen: Soft, there is no tenderness, rigidity, rebound or guarding, no obvious peritoneal signs, no palpable pulsatile abdominal masses, no auscultated abdominal bruit : No CVAT Extremities: No edema Neuro: No focal neurological deficits, cranial nerves II through XII intact, 5/5 strength in all extremities. Intact sensation to light touch in all extremities, 2+ reflexes bilateral patella tendons. Normal gait. No ataxia. Skin: No rash or lesions noted MEDICAL DECISION MAKING: Chief Complaint: Palpitations External records reviewed: Reviewed prior ED visit. Reviewed prior lab studies. TSH was obtained on 11/02/2023 and it was within normal limits. Reviewed prior cardiology follow-up. Factors affecting care: History of SVT Social determinants of health: Current everyday smoker History obtained from others: none Consults: none [facility] Narrative: Patient was initially hemodynamically stable, afebrile, nontoxic-appearing. His heart rate is 101. I considered the following differential diagnosis: Arrhythmia, anemia, myocarditis anemia, electrolyte disturbance, PE I obtained a broad lab and imaging workup to further elucidate the etiology of the patient's complaints. While considered pulmonary malignancy potential etiology is low suspicion that this is causing the patient's palpitations that she has no chest pain, no shortness of breath, she is hypoxic and she is low risk Wells score. There is no indication for CT scanning of the chest with contrast this time. ALL IMAGES (IF OBTAINED) HAVE BEEN PERSONALLY REVIEWED AND INTERPRETED BY MYSELF. EKG with normal sinus rhythm, normal axis, no intervals, no STEMI, similar morphology to prior EKG from October 2023 I have personally reviewed the patient's chest x-ray. Chest x-ray is unremarkable for pulmonary edema, pneumothorax, pneumonia or focal cardiopulmonary abnormality. CBC without leukocytosis, severe anemia, no thrombocytopenia. BMP without evidence of significant electrolyte abnormalities, no anion gap, no acute kidney injury. High-sensitivity troponin is negative, no evidence of myocardial ischemia On reassessment patient remained hemodynamically stable, afebrile and nontoxic- appearing. No signs of significant arrhythmia, myocardial ischemia, anemia or electrolyte disturbances. Encourage patient to keep already scheduled follow-up appoint with cardiology for outpatient echo early next week. Strict return precautions were discussed. The patient and/or family, caregivers express understanding. The patient and/or family, caregivers agrees with the plan. Shared decision making: I will have a discussion with the patient and or visitors regarding risk/benefits of further testing or admission. They will be made aware of of the risk/benefits inherent in this decision they will be given the opportunity to voice understanding. Total critical care time today provided was at least 0 minutes. This excludes separately billable procedures. Critical care time (if documented) is secondary to the patient having high probability of clinically significant/life threatening deterioration in the patient's condition which required my urgent intervention. Impression: 1. Palpitations 2. History of SVT Dispo: Discharge home This note was generated with [employer] dictation software. It may contain incorrect words, spelling, and punctuation that were not noted in review of the chart prior to signing. Lab Data Labs: Laboratory Results - last 24 hr 12/15/23 19:40 WBC 9.4 RBC 4.95 Hgb 14.9 Hct 45.5 MCV 91.9 MCH 30.1 MCHC 32.7 RDW Std Deviation 43.4 RDW Coeff of Jarett 12.8 Plt Count 340 MPV 9.0 Sodium 139 Potassium 3.7 Chloride 107 Carbon Dioxide 25.0 Anion Gap 7 BUN 11 Creatinine 0.71 Estim Creat Clear Calc 89.09 Est GFR (MDRD) Af Amer 113 Est GFR (MDRD) Non-Af 93 BUN/Creatinine Ratio 15.4 Glucose 107 H Calcium 9.2 Troponin I High Sens 3 Radiography Diagnostic Testing: Clinical Impression(s) from Imaging Studies Chest X-Ray 12/15/23 19:50 IMPRESSION: Normal x-ray examination of the chest. Electronically Signed: Siva Colbert MD at 20:46 EDT , Discharge Plan Triage Chief Complaint: Palpitations ED Provider: Bernard Oneal Dx/Rx/DC Orders Prescriptions: No Action Hair,Skin and Nails Tablet 1 tab PO DAILY Zyrtec 10 mg capsule 10 mg PO DAILY PRN (Reason: ALLERGIES) Primary Care Provider: Care Physician,No Primary Referrals: Care Physician,No Primary [Primary Care Provider] - Print Language: [place] African
--- NOTE | 2023-12-15 19:50 | RAD_ITS ---
STUDY: X-RAY CHEST REASON FOR EXAM: Female, 48 years old. Palpitations TECHNIQUE: AP portable COMPARISON: November 03, 2023 FINDINGS: The lungs are clear and expanded. There is no demonstrated pleural abnormality. Normal size heart. Normal mediastinum and samantha. Normal visualized pulmonary arteries. Normal visualized aortic arch and descending thoracic aorta. Normal visualized thoracic spine. Normal visualized ribs, clavicles, and shoulders. There is no demonstrated abnormality of the visualized soft tissue structures of the upper abdomen. RAD/Chest 1 View (Portable) IMPRESSION: Normal x-ray examination of the chest. Electronically Signed: Siva Colbert MD at 20:46 EDT ,
[2023-12-15] MEDS: 0.9% Normal Saline (500mL Bag) 500 ML 1000 ML IV (20:15)
[2023-12-15 20:24] LABS: Hematocrit 45.5 % (37-47); Hemoglobin 14.9 g/dL (12.0-15.0); Mean Corp Hgb Conc 32.7 g/dL (32-36); Mean Corpuscular Hgb 30.1 pg (27.0-32.0); Mean Corpuscular Volume 91.9 fL (81-99); Platelet Count 340 K/mm3 (150-450); RBC Distribution Width CV 12.8 % (11.6-14.6); RBC Distribution Width SD 43.4 fl (35.1-43.9); Red Blood Count 4.95 M/mm3 (4.2-5.4); White Blood Count 9.4 K/mm3 (4.4-11.0)
--- NOTE | 2023-12-15 20:26 | EKG12_ITS ---
Test Reason : HR Blood Pressure : / mmHG Vent. Rate : 097 BPM Atrial Rate : 097 BPM P-R Int : 134 ms QRS Dur : 068 ms QT Int : 328 ms P-R-T Axes : 079 074 064 degrees QTc Int : 416 ms Normal sinus rhythm with sinus arrhythmia Normal ECG When compared with ECG of 02-NOV-2023 20:20, No significant change was found Confirmed by ALEXANDRE FARRIS, JOSE ([id number]), order editor ELAINE WU ([id number]) on 12/21/2023 11:32:22 AM Referred By: Confirmed By:JOSE SCHROEDER MD
[2023-12-15 20:36] VITALS: BP 118/70; PULSE 82; RESP 13; O2SAT 98
[2023-12-15 20:43] LABS: Anion Gap 7 (5-15); BUN 11 mg/dL (7-18); BUN/Creat Ratio 15.4 RATIO (10-20); Calcium,Total 9.2 mg/dL (8.5-10.1); Chloride 107 mmol/L (98-107); Creatinine, Serum 0.71 mg/dL (0.55-1.02); EST Glomerular Filtration Rate 93 mL/min (>60); Est Glom Filt Rate - Afr Amer 113 mL/min (>60); Estimated Creatinine Clearance 89.09 ml/min; Glucose 107 mg/dL (74-106); Potassium 3.7 mmol/L (3.5-5.1); Sodium Level 139 mmol/L (136-145); Troponin-I HS 3 pg/mL (3.0-54.0)
[2023-12-15 21:00] VITALS: BP 109/77; PULSE 82; RESP 12; O2SAT 98
[2023-12-15 21:18] VITALS: BP 109/77; PULSE 87; RESP 17; TEMP 36.9; O2SAT 98
== END 2023-12-15 21:22 | disposition home or self-care (01) ==
PROVIDERS: Emergency Provider Emergency Medicine; Visit Provider Emergency Medicine
DX: R00.2 Palpitations (principal); F17.210 Nicotine dependence, cigarettes, uncomplicated; Z86.79 Personal history of other diseases of the circulatory system; Z82.49 Family history of ischemic heart disease and other diseases of the circulatory system
CPT/HCPCS: 71045; 80048; 84484; 85027; 93005; 99284; J7040

== ENCOUNTER → 2023-12-22 | Outpatient (CLI) | payer OTHER, SELFPAY | END | disposition home or self-care (01) | LOC: CVS 09:00 | PROVIDERS: Referring Provider Internal Medicine Cardiovascular Disease; Visit Provider Internal Medicine Cardiovascular Disease | DX: I47.10 Supraventricular tachycardia, unspecified (principal) | CPT/HCPCS: 93225; 93226 ==

== ENCOUNTER → 2024-01-17 | Outpatient (CLI) | payer OTHER, SELFPAY ==
--- NOTE | 2024-01-17 08:49 | ECHOD_ITS ---
Reason For Study: Arrhythmia Procedure This was a 2D Doppler, Color Flow transthoracic echocardiogram. Exam performed in department. Left Ventricle Normal LV size. Left ventricular systolic function is normal. The left ventricular ejection fraction is 60 %. Normal diastology for age. No regional wall motion abnormalities noted. Right Ventricle Normal RV size. Normal systolic function. Atria Normal left atrium. Normal right atrium. Mitral Valve Normal mitral valve. Tricuspid Valve Normal tricuspid valve. Mild (1+) tricuspid valve insufficiency. Pulmonary artery systolic pressure is 28 mmHg. Aortic Valve Trisinus/trileaflet aortic valve. Pulmonic Valve Normal pulmonic valve. Great Vessels Normal aortic root. The pulmonary artery is normal size. Normal inferior vena cava. Pericardium/Pleural No pericardial effusion. MMode/2D Measurements & Calculations LVIDd: 4.5 cm IVSd: 1.1 cm Ao root diam: 2.5 cm LVIDs: 3.4 cm LVPWd: 0.99 cm LA dimension: 3.3 cm RVDd: 3.2 cm FS: 23.7 % LAV(MOD-bp): 41.7 ml LVAd ap4: 23.8 cm2 SV(MOD-sp4): 41.9 ml LAV(MOD-bp) Indexed: 25.5 ml/m2 LVLd ap4: 6.8 cm LAV(MOD-sp2): 37.3 ml EDV(MOD-sp4): 67.4 ml LAV(MOD-sp4): 42.0 ml EDV(sp4-el): 70.6 ml LVAs ap4: 13.0 cm2 LVLs ap4: 5.6 cm ESV(MOD-sp4): 25.5 ml ESV(sp4-el): 25.8 ml EF(MOD-sp4): 62.2 % EF(sp4-el): 63.4 % SV(sp4-el): 44.8 ml LA A4 area: 16.6 cm2 RA A4 area: 12.9 cm2 TAPSE: 2.6 cm Time Measurements MV dec time: 0.20 sec Doppler Measurements & Calculations MV E max kana: 93.3 cm/sec Lat Peak E' Kana: 13.1 cm/sec Med Peak E' Kana: 13.2 cm/sec MV A max kana: 69.4 cm/sec E/E' lat: 7.1 E/E' med: 7.1 MV E/A: 1.3 MV V2 max: 112.5 cm/sec MV P1/2t max kana: 113.2 cm/sec Ao V2 max: 112.2 cm/sec MV max P.1 mmHg MV P1/2t: 64.3 msec Ao max P.0 mmHg MV V2 mean: 54.2 cm/sec MV dec slope: 515.7 cm/sec2 Ao V2 mean: 75.4 cm/sec MV mean P.5 mmHg Ao mean P.6 mmHg MV V2 VTI: 25.8 cm MVA(P1/2t): 3.4 cm2 Ao V2 VTI: 23.0 cm AV (velocity ratio): 0.89 LV V1 max: 98.4 cm/sec MR max kana: 392.2 cm/sec PA V2 max: 77.2 cm/sec LV V1 max P.9 mmHg MR max P.5 mmHg PA max PG (full): 0.61 mmHg LV V1 mean P.9 mmHg LV V1 mean: 63.7 cm/sec LV V1 VTI: 20.5 cm TR max kana: 246.5 cm/sec TR max P.3 mmHg ECHO/Echo Complete Interpretation Summary Normal LV size. Left ventricular systolic function is normal. The left ventricular ejection fraction is 60 %. Normal diastology for age. Pulmonary artery systolic pressure is 28 mmHg. Ordering Physician: Balta Maldonado Referring Physician: Balta Maldonado Performed By: Manas Pedraza RCS
== END | disposition home or self-care (01) ==
PROVIDERS: Referring Provider Internal Medicine Cardiovascular Disease; Visit Provider Internal Medicine Cardiovascular Disease
DX: I36.1 Nonrheumatic tricuspid (valve) insufficiency (principal); I47.10 Supraventricular tachycardia, unspecified
CPT/HCPCS: 93306

== ENCOUNTER 2024-04-06 07:57 | Emergency (ER) | payer OTHER, SELFPAY ==
[2024-04-06 07:59] VITALS: BP 124/59; PULSE 87; RESP 19; TEMP 36.1; O2SAT 98; BMI 20.9
--- NOTE | 2024-04-06 08:25 | RAD_ITS ---
EXAM: XR CHEST, 1 VIEW CLINICAL INDICATION: chest pain TECHNIQUE: Frontal view of the chest. COMPARISON: XR Chest dated 12/15/2023 FINDINGS: LUNGS AND PLEURAL SPACES: Normal. No consolidation or edema. No pneumothorax. No effusion. HEART: Normal heart size. MEDIASTINUM: No mediastinal or hilar mass. BONES/JOINTS: No acute abnormality. RAD/Chest 1 View (Portable) IMPRESSION: No acute cardiopulmonary abnormality. No interval change. Electronically Signed: Agapito Lerma MD at 8:57 EST ,
--- NOTE | 2024-04-06 08:36 | EDS_ITS ---
HPI History of Present Illness Chief Complaint: Chest Pain Informant: patient Narrative Narrative: 49-year-old female presenting to the emergency room with a chief complaint of chest pain neck pain. Patient states that since Wednesday she has had pain left side of her neck that is worse with sidebending to the right. She figured that it was muscular in nature but is persisted. She has also developed a pain which was constant initially but now intermittent located in her lower midsternal chest. Patient has a history of SVT and is on metoprolol. She has followed with cardiology ordered Holter monitor and has had echocardiogram. Tonight she was at work nursing advised her to seek evaluation. She denies any pleuritic chest pain dyspnea. [facility] Medical History Palpitations SVT (supraventricular tachycardia) Near syncope Allergic contact dermatitis due to plant Home Medications ?Medication ?Instructions ?Recorded ?Last Taken ?Type cetirizine 10 mg capsule (Zyrtec) 10 mg PO DAILY PRN ALLERGIES 10/01/21 Unknown History multivitamin with minerals 1 tab PO DAILY 10/01/21 Unknown History (Hair,Skin and Nails tablet) metoprolol succinate 25 mg 25 mg PO DAILY #30 tabs 01/18/24 Unknown Rx tablet,extended release 24 hr Allergy/AdvReac Type Severity Reaction Status Date / Time No Known Allergies Allergy Verified 12/15/23 19:37 Family History Mother COPD (chronic obstructive pulmonary disease) Alzheimer's dementia Heart disease Hypertension Father Heart disease Aortic aneurysm Grandmother Heart disease Diabetes Cancer Uncle Lung cancer Surgical History S/P removal of ovarian cyst History of cholecystectomy H/O tubal ligation Social History household members: children current occupational status: employed 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 Smoking Status: Current every day smoker tobacco type: cigarettes alcohol intake: never substance use type: does not use diet: other what type of physical activity do you participate in: walking frequency: 3-4 times per week seatbelt use: always do you feel safe at home: Yes additional social history: single ROS ROS ED Constitutional Constitutional ED: Denies chills, fever(s) or weight loss Eyes Eyes: Denies change in vision or diplopia ENT ENT ED: Denies ear pain, rhinorrhea or sore throat Cardiovascular Cardiovascular: Reports chest pain; Denies orthopnea, palpitations or racing heartbeat Respiratory/Chest Respiratory/Chest: Denies cough, dyspnea or orthopnea Gastrointestinal Gastrointestinal: Denies abdominal pain, diarrhea, nausea or vomiting Genitourinary Genitourinary ED: Denies dysuria, hematuria or urinary frequency Musculoskeletal Musculoskeletal: Reports neck pain; Denies arthralgias or myalgias Integumentary Denies abscess or rash Neurologic Neurologic: Denies headache(s) or weakness Psychiatric Psychiatric: Denies anxiety, depression, suicidal ideation or suicidal thoughts Endocrine Endocrinology: Denies polydipsia, polyphagia or polyuria Allergic/Immunologic Allergic/Immunologic ED: Denies mouth swelling, tongue swelling or urticaria EXAM Physical Exam Const Vital Signs: 04/06/24 07:59 04/06/24 08:58 04/06/24 09:00 Temperature 96.9 F L Temperature Source Temporal Pulse Rate 87 77 Respiratory Rate 19 H Blood Pressure 124/59 H 111/54 L 111/54 L Blood Pressure Mean 80 73 73 Pulse Ox 98 04/06/24 09:55 Temperature 97.9 F Temperature Source Pulse Rate 81 Respiratory Rate 16 Blood Pressure 108/72 Blood Pressure Mean 84 Pulse Ox 100 Positive well nourished and well developed General Appearance ED: well developed HEENT Reports normocephalic, head/scalp atraumatic and moist mucous membranes Eyes PERRL and EOMs intact bilaterally Neck no lymphadenopathy, supple and no JVD Resp normal respiratory effort and clear to auscultation bilaterally Cardio regular rate, regular rhythm and no murmurs GI normal to inspection, nondistended, normoactive bowel sounds and non-tender Palpation: soft Back/Spine no CVA tenderness and normal ROM Extremity normal to inspection General Extremety ED: Negative for edema General Extremity: Negative for edema Neuro oriented x3 and CN's II-XII intact bilaterally Sensorium / Orientation: alert Motor Exam: strength 5/5 throughout Psych mental status grossly normal Mood & Affect: Negative for depressed or tearful Skin no rashes or lesions noted and no wounds MDM MDM MDM Narrative Medical decision making narrative: Differential diagnosis includes but not limited to cervical myofascial strain esophageal pathology like GERD esophageal spasm, pericarditis acute coronary syndrome cardiac dysrhythmia pneumothorax aortic dissection pulmonary embolism PERC negative. My independent interpretation of the single view chest x-ray is no acute process. EKG is a normal sinus rhythm. I do not see significant changes comparing to prior EKG. White count is 7.5 platelet count 344 hemoglobin 13.6. BMP shows a glucose of 112. Troponin is 3. Only 1 troponin will be obtained. Patient has had constant symptoms since Wednesday and only yesterday becoming more intermittent. I think that the neck pain is most likely musculoskeletal in nature as it is reproducible with movement. The midsternal lower pain is unlikely to be cardiac more likely to be GI in nature. Patient is comfortable with discharge as on my. Would recommend PCP or cardiology follow- up if needed return if worsening or concerns History & Record Review Discussion w/independent historian: Patient Lab Data Attestation: I reviewed the patient's lab results. Labs: Laboratory Results - last 24 hr 04/06/24 08:30 WBC 7.5 RBC 4.43 Hgb 13.6 Hct 40.5 MCV 91.4 MCH 30.7 MCHC 33.6 RDW Std Deviation 44.2 H RDW Coeff of Jarett 13.2 Plt Count 344 MPV 8.8 Immature Gran % (Auto) 0.300 Neut % (Auto) 53.9 Lymph % (Auto) 35.3 [place] % (Auto) 7.5 Eos % (Auto) 2.1 Baso % (Auto) 0.9 Absolute Neuts (auto) 4.0 Absolute Lymphs (auto) 2.64 Nucleated RBC % 0 Sodium 138 Potassium 4.2 Chloride 106 Carbon Dioxide 28.0 Anion Gap 5 BUN 17 Creatinine 0.64 Estim Creat Clear Calc 97.78 Est GFR (MDRD) Af Amer 129 Est GFR (MDRD) Non-Af 107 BUN/Creatinine Ratio 26.8 H Glucose 112 H Calcium 8.7 Troponin I High Sens 3 Radiography Diagnostic Testing: Clinical Impression(s) from Imaging Studies Chest X-Ray 04/06/24 08:25 IMPRESSION: No acute cardiopulmonary abnormality. No interval change. Electronically Signed: Agapito Lerma MD at 8:57 EST , EKG Initial EKG: Attestation: I personally reviewed and interpreted this EKG as follows: Comments: Normal sinus rhythm ventricular rate of 78 bpm Prior EKG tracings: available for review Prior: Unchanged Discharge Plan Triage Chief Complaint: Chest Pain ED Provider: Dario Dos Santos Dx/Rx/DC Orders Clinical Impression: Chest pain, Acute neck pain Instructions: ED Chest Pain, Uncertain Cause Prescriptions: No Action Hair,Skin and Nails Tablet 1 tab PO DAILY Zyrtec 10 mg capsule 10 mg PO DAILY PRN (Reason: ALLERGIES) metoprolol succinate 25 mg tablet extended release 24 hr 25 mg PO DAILY Qty: 30 11RF Primary Care Provider: Care Physician,No Primary Referrals: Balta Maldonado MD [Med Staff - Active Staff] - [facility] appointment Care Physician,No Primary [Primary Care Provider] - Print Language: Czech Disposition Disposition: Home, Self Care Discharge Date/Time: 04/06/24 09:57
[2024-04-06 08:58] VITALS: BP 111/54; PULSE 77
[2024-04-06 08:58] LABS: Absolute Lymphocyte Count 2.64 X10^3/uL (0.83-4.51); Basophil# 0.07 X10^3/uL; Basophil% 0.9 % (0-1); Eosinophil# 0.16 X10^3/uL; Eosinophils% 2.1 % (0-5); Hematocrit 40.5 % (37-47); Hemoglobin 13.6 g/dL (12.0-15.0); Lymphocyte # 2.64 X10^3/ul (0.83-4.51); Lymphocyte % 35.3 % (19-41); Mean Corp Hgb Conc 33.6 g/dL (32-36); Mean Corpuscular Hgb 30.7 pg (27.0-32.0); Mean Corpuscular Volume 91.4 fL (81-99); Mean Platelet Vol. 8.8 fl (6.2-12.0); Monocyte# 0.56 X10^3/uL; Monocyte% 7.5 % (0-10); NRBC Flagged by Analyzer 0 % (0-5); Neutrophil # 4.03 X10^3/uL (2.7-7.7); Neutrophil % 53.9 % (47-70); Platelet Count 344 K/mm3 (150-450); RBC Distribution Width CV 13.2 % (11.6-14.6); RBC Distribution Width SD 44.2 fl (35.1-43.9); Red Blood Count 4.43 M/mm3 (4.2-5.4); White Blood Count 7.5 K/mm3 (4.4-11.0)
[2024-04-06 09:00] VITALS: BP 111/54
[2024-04-06 09:18] LABS: Anion Gap 5 (5-15); BUN 17 mg/dL (7-18); BUN/Creat Ratio 26.8 RATIO (10-20); Calcium,Total 8.7 mg/dL (8.5-10.1); Chloride 106 mmol/L (98-107); Creatinine, Serum 0.64 mg/dL (0.55-1.02); EST Glomerular Filtration Rate 107 mL/min (>60); Est Glom Filt Rate - Afr Amer 129 mL/min (>60); Estimated Creatinine Clearance 97.78 ml/min; Glucose 112 mg/dL (74-106); Potassium 4.2 mmol/L (3.5-5.1); Sodium Level 138 mmol/L (136-145); Troponin-I HS 3 pg/mL (3.0-54.0)
[2024-04-06 09:55] VITALS: BP 108/72; PULSE 81; RESP 16; TEMP 36.6; O2SAT 100
== END 2024-04-06 09:57 | disposition home or self-care (01) ==
PROVIDERS: Emergency Provider Emergency Medicine; Visit Provider Emergency Medicine
DX: R07.9 Chest pain, unspecified (principal); M54.2 Cervicalgia; F17.210 Nicotine dependence, cigarettes, uncomplicated
CPT/HCPCS: 71045; 80048; 84484; 85025; 93005; 99284; A4216

== ENCOUNTER → 2024-06-16 | Outpatient (CLI) | payer OTHER, SELFPAY ==
[2024-06-16 12:18] LABS: Absolute Lymphocyte Count 2.16 X10^3/uL (0.83-4.51); Absolute Neutrophil Count 4.1 X10^3/uL (2.0-7.7); Basophil# 0.08 X10^3/uL; Basophil% 1.1 % (0-1); Eosinophil# 0.11 X10^3/uL; Eosinophils% 1.5 % (0-5); Hematocrit 45.8 % (37-47); Hemoglobin 14.9 g/dL (12.0-15.0); Lymphocyte # 2.16 X10^3/ul (0.83-4.51); Lymphocyte % 30.4 % (19-41); Mean Corp Hgb Conc 32.5 g/dL (32-36); Mean Corpuscular Hgb 30.2 pg (27.0-32.0); Mean Corpuscular Volume 92.7 fL (81-99); Mean Platelet Vol. 8.8 fl (6.2-12.0); Monocyte# 0.62 X10^3/uL; Monocyte% 8.7 % (0-10); NRBC Flagged by Analyzer 0 % (0-5); Neutrophil # 4.13 X10^3/uL (2.7-7.7); Neutrophil % 58.2 % (47-70); Platelet Count 357 K/mm3 (150-450); RBC Distribution Width CV 12.6 % (11.6-14.6); Red Blood Count 4.94 M/mm3 (4.2-5.4); White Blood Count 7.1 K/mm3 (4.4-11.0)
[2024-06-16 12:55] LABS: Anion Gap 6 (5-15); BUN 11 mg/dL (7-18); Calcium,Total 9.4 mg/dL (8.5-10.1); Chloride 106 mmol/L (98-107); Creatinine, Serum 0.78 mg/dL (0.55-1.02); EST Glomerular Filtration Rate 83 mL/min (>60); Est Glom Filt Rate - Afr Amer 101 mL/min (>60); Glucose 140 mg/dL (74-106); Potassium 3.9 mmol/L (3.5-5.1); Sodium Level 138 mmol/L (136-145)
== END | disposition home or self-care (01) ==
LOC: LAB 11:55
PROVIDERS: Referring Provider Physician Assistant Medical; Visit Provider Physician Assistant Medical
DX: I47.10 Supraventricular tachycardia, unspecified (principal)
CPT/HCPCS: 36415; 80048; 85025

== ENCOUNTER 2024-07-04 12:10 | Observation (INO) | payer OTHER, SELFPAY ==
--- NOTE | 2024-06-25 13:42 | PCM.HP.BLA ---
History and Physical Date of Admission: 07/04/24 Pleasant 49-year-old lady with no previous cardiac history who presented to the emergency room after she was noted to have an episode of palpitations which started suddenly. 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 Her pulse was taken at about 240 bpm and an EKG was done quickly which demonstrated a narrow complex tachycardia with a rate of 221 bpm. Patient has continued to have episodes of SVT. She is able to stop them on her own with basal vagal maneuvers. She states that these occur approximately once per month. She feels lightheaded and dizzy with this. She feels short of breath when she has this. She will proceed with EP study and possible SVT ablation. Intake Vital Signs: See EMR Intake Visit Reasons: SVT Ablation [employer]visor Required: No Is patient in pain?: No Allergies No Known Allergies Allergy (Verified 06/02/24 08:41) Medications: See EMR Ejection fraction %: 60 Have you fallen in the past year?: No [facility] Medical History Palpitations SVT (supraventricular tachycardia) Near syncope Allergic contact dermatitis due to plant Surgical History S/P removal of ovarian cyst History of cholecystectomy H/O tubal ligation Family History Mother COPD (chronic obstructive pulmonary disease) Alzheimer's dementia Heart disease HypertensionFather Heart disease Aortic aneurysmGrandmother Heart disease Diabetes CancerUncle Lung cancer Social History household members: children current occupational status: employed 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 Status: Current every day smoker tobacco type: cigarettes alcohol intake: never substance use type: does not use diet: other what type of physical activity do you participate in: walking frequency: 3-4 times per week seatbelt use: always do you feel safe at home: Yes additional social history: single ROS Const Const: Negative for fatigue or weakness Eyes Eyes: Negative for change in vision ENT ENT: Negative for dizziness or balance problems Cardio Chest Pain: No Palpitations: Yes Edema: None Resp Respiratory: Negative for SOB with activity, SOB at rest or SOB orthopnea\SOB lying down GI GI: Negative nausea or heartburn Musc Musc: Negative for balance problems Neuro Neuro: Negative for dizziness, lightheadedness, near syncope, syncope or weakness Endo Endo: Negative for fatigue Cardiology Exam Const Appearance: cooperative, no acute distress and well developed Orientation: alert, awake and oriented x3 Head Head: normocephalic and atraumatic Mouth: moist mucous membranes Eyes General: appearance normal, both eyes and all related structures Conjunctivae: conjunctivae normal Pupils: PERRL EOM: EOM intact bilaterally Neck Neck: normal visual inspection, no lymphadenopathy and no JVD Carotids: Negative bruit Neck Mass: Negative Neck mass Chest Chest inspection: normal inspection of the chest and symmetric chest movement Auscultation: Bilateral: Clear to Auscultation Cardio Palpation: normal PMI Rate: regular rate Rhythm: regular rhythm Heart sounds: S1 normal and S2 normal; Negative rub, gallop or murmur GI GI: normal to inspection, soft, no hepatosplenomegaly and bowel sounds present; Negative tender Neuro General: patient alert, patient awake, patient oriented x3, CN's II-XI intact bilaterally and moves all extremities Extremities Pulses: Normal: Right Posterior Tibial Pulse, Left Posterior Tibial Pulse, Right Radial Pulse and Left Radial Pulse Lower Extremity Edema: None: Bilateral Psych Psychological: normal affect Supplemental Info Supplemental Information Holter monitor from 12/22/2023: Sinus rhythm with rare PACs Minimum heart rate 63 bpm. Average heart rate 88 bpm. Maximum heart rate 130 bpm. Ventricular ectopy 0.0%. Supraventricular ectopy 0.0%. Longest R to R interval 1 second. No atrial fibrillation noted. No ventricular tachycardia noted. The patient kept a 24-hour diary and noted feeling my heartbeat, stabbing pain, chest pain, and shoulder pain which correlated with sinus tachycardia. Echocardiogram 01/2024: Normal LV size. Left ventricular systolic function is normal. The left ventricular ejection fraction is 60 %. Normal diastology for age. Pulmonary artery systolic pressure is 28 mmHg. 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 Patient would like to pursue an ablation. Agreeable with this.
[2024-07-03 09:34] VITALS: BMI 20.5
[2024-07-04 09:01] LABS: Internal QC Validated? YES +Cl - CLEAR BKGD; Pregnancy, Urine Negative Negative
--- NOTE | 2024-07-04 12:18 | ELECTROSTU_ITS ---
Electrophysiology Report Electrophysiology Report Radha Morris is a 49 year old female who has a past medical history of SVT, who presented to the [place] EP lab for further evaluation regarding SVT. Procedure Summary * Patient prepped and draped in sterile fashion. * Right groin infiltrated with lidocaine. * Right femoral access obtained x3 with ultrasound guidance. * Sheaths inserted into femoral veins via Seldinger technique. * Catheters inserted through right groin. * EPS results listed below in conclusions. * Isuprel testing performed. * Sheaths pulled in lab and hemostasis achieved per protocol. Findings: BASELINE ISUPREL SCL: 670ms SCL: 550ms AH: 101ms AH: 64ms HV: 40ms HV: 40ms Maximum SNRT: 840ms CSNRT: 170ms AVBCL: 280ms AVBCL: 210ms VABCL: 390ms VABCL: 230ms Decremental Conduction? Y Decremental Conduction? Y Concentric: Y Concentric: Y A ERP 200ms @ 500 ms AVN ERP <200ms @ 400ms VAERP 320ms @ 500ms CS pacing AVB 290ms BASELINE ISUPREL Inducible Tachycardia: N Inducible Tachycardia: N Ablation of: slow pathway Ablation Parameters: power titrated Ablation Catheter Used: non-irrigated 4mm Results of Ablation Site of Ablation: slow pathway Successful, elimination of cross-over Post Ablation Testing BASELINE SCL: 650ms AH: 70ms HV: 40ms AVBCL: 410ms AVN ERP 320ms @ 600ms VA BCL: 430ms Conclusions 1. Baseline rhythm is sinus rhythm. 2. Normal sinus node function (longest SNRT 840ms). 3. Normal AV node function, normal infranodal conduction (HV= 40ms). 4. No evidence of accessory pathway. 5. 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 VA conduction present and is decremental.? 7. No inducible SVT at baseline state or on isuprel 8. She has a narrow complex tachycardia documented at an ER visit, which terminated with vagal manuevers. On isuprel she had an echo beat, and had cross over at baseline and on isuprel, consistent with dual AV jasmin physiology. Therefore a slow pathway ablation was performed. 9. Power titration of ablation performed with 4mm catheter at the slow pathway region performed, resulting in multiple junctional beats. 10. Repeat testing performed after ablation with elimination of cross-over. 11. Sheaths removed in the EP lab. Recommendations 1. Stop metoprolol 2. Bedrest for 3 hours 3. The patient can continue to follow-up with Dr. Maldonado.
[2024-07-04 15:34] VITALS: BMI 20.5
[2024-07-04 17:00] VITALS: BP 107/71; PULSE 83; RESP 16; TEMP 36.3; O2SAT 96
[2024-07-04 22:09] VITALS: BP 102/61; PULSE 74; RESP 16; TEMP 36.6; O2SAT 97
[2024-07-05 03:00] VITALS: BP 94/54; PULSE 82; RESP 18; TEMP 36.7; O2SAT 96
[2024-07-05 05:48] LABS: Hemoglobin 13.1 g/dL (12.0-15.0); Mean Corp Hgb Conc 33.6 g/dL (32-36); Mean Corpuscular Hgb 30.9 pg (27.0-32.0); Mean Platelet Vol. 8.8 fl (6.2-12.0); Platelet Count 232 K/mm3 (150-450); RBC Distribution Width CV 12.5 % (11.6-14.6); RBC Distribution Width SD 42.5 fl (35.1-43.9); Red Blood Count 4.24 M/mm3 (4.2-5.4); White Blood Count 6.7 K/mm3 (4.4-11.0)
[2024-07-05 06:11] LABS: Scan Indicated on CBC? Y/N NO
[2024-07-05 06:46] LABS: Partial Thromboplast Time 31.6 Seconds (24.1-36.2)
[2024-07-05 08:00] VITALS: BP 118/51; PULSE 72; RESP 18; TEMP 37; O2SAT 98
--- NOTE | 2024-07-05 08:08 | PCM.DC.SUM ---
Providers Date of Admission: 07/04/24 Date of Discharge: 07/05/24 Primary Care Physician: No Primary Care Phys Reason For Visit: A-FIB Diagnosis Discharge Diagnosis (1) SVT (supraventricular tachycardia): Status: Acute Code(s): I47.10 - Supraventricular tachycardia, unspecified Plan: Patient status post successful radiofrequency ablation of the slow pathway of the AV node by Dr. Guerrero Plan Patient will follow-up in the office at the [facility] per her previously arranged appointment with Beth. Medications at Discharge Home Medications cetirizine 10 mg capsule (Zyrtec) 10 mg PO DAILY PRN ALLERGIES 10/01/21 multivitamin with minerals (Hair,Skin and Nails tablet) 1 tab PO DAILY vitamin 10/01/21 Hospital Course Operations None and - Procedures - (EP procedure with a radiofrequency ablation of the slow pathway of the AV node.) Summary of Care Provided Minutes Spent on Discharge: 30 Physical Exam Narrative Patient is up ad yuly. in the room without restrictions. Const alert and oriented x3 General Appearance: cooperative and well developed HEENT normocephalic Eyes PERRL Neck no JVD Chest inspection of chest normal Resp normal respiratory effort Cardio regular rate and regular rhythm Cardio Narrative: Right groin mildly ecchymotic with no bruit. Good distal pulses in the feet. Extremity Extremity Narrative: Small ecchymotic area at the insertion site in the right groin. No bruit. Neuro oriented x3 Psych mental status grossly normal Weight / BMI Weight Weight: 123 lb Body Mass Index (BMI) 20.5 ABG / Lab / Microbiology Data 07/05/24 05:27 07/05/24 05:27 Laboratory: Laboratory Results - last 24 hr 07/04/24 08:52: Urine Test Negative 07/05/24 05:27: WBC 6.7, RBC 4.24, Hgb 13.1, Hct 39.0, MCV 92.0, MCH 30.9, MCHC 33.6, RDW Std Deviation 42.5, RDW Coeff of Jarett 12.5, Plt Count 232, MPV 8.8, PT 13.0, INR 1.0, APTT 31.6 D/C Instructions Discharge Activity: May Drive and May Shower Return to work on: 07/12/24 May shower in (days): 1 May resume sexual activity in: 1 week Weight Bearing Status: Full weight bearing Lifting Restricted to (Lbs): 10 Lifting Restrictions: Limit lifting to 10 pounds for the next 5-7 days. Change Dressing in: 1 day Cleanse incision/area with: Soap & Water DC O2, CPAP, BIPAP Needs Home O2 Discharge instructions: No DC home with Oxygen: No Please Follow Up With: [facility] When: per previous appointment with GILBERT Negro Meaningful Use Info Meaningful Use Meaningful Use Diagnoses (Choose all that apply): None applicable Ischemic Stroke Statin Dosing Therapy Reference: STATIN DOSE THERAPY REFERENCE: * Patients > 75 years receive moderate or high dose statin therapy. * Patients 75 years or YOUNGER should receive HIGH intensity statin dose unless contraindicated. You will be required to document reason for non-treatment if statin daily dose does not meet guidelines. HIGH DOSE STATIN THERAPY DAILY Atorvastatin > than or = to 40 mg Rosuvastatin > than or = to 20 mg Amlodipine + Atorvastatin > than or = to 2.5/40 mg Ezetimibe + Simvastatin 10/80 mg Simvastatin 80mg Discharge Plan Admission Admit Date/Time: 07/04/24 12:10 Primary Reason for Your Visit: EP ablation Attending Provider: Rogelio Narayanan Primary Care Provider: Care Physician,No Primary Discharge Orders/Prescriptions Prescriptions: No Action Hair,Skin and Nails Tablet 1 tab PO DAILY Zyrtec 10 mg capsule 10 mg PO DAILY PRN (Reason: ALLERGIES) metoprolol succinate 25 mg tablet extended release 24 hr 25 mg PO DAILY Qty: 30 11RF Referrals / Follow Up: Care Physician,No Primary [Primary Care Provider] - Disposition Disposition (needs filled in before D/C Order can be placed): Home, Self Care Charges/Coding Visit Charges Inpatient E&M: 13797 Disch Hosp
[2024-07-05 09:12] LABS: Anion Gap 15 (5-15); BUN 12 mg/dL (4-19); BUN/Creat Ratio 21.4 RATIO (10-20); Calcium 8.7 mg/dL (7.6-11.0); Carbon Dioxide 20.1 mmol/L (22.0-29.0); Chloride 104 mmol/L (96-108); Creatinine, Serum 0.6 mg/dL (0.6-1.0); EST Glomerular Filtration Rate 112 (>60); Estimated Creatinine Clearance 102.09 ml/min; Glucose 143 mg/dL (70-99); Potassium 4.1 mmol/L (3.3-5.1); Sodium Level 138 mmol/L (133-145)
--- NOTE | 2024-07-05 09:38 | CASEMGMT ---
Patient has order for discharge. RN CM in to discuss needs at discharge, son at bedside. Patient denies needs or help at discharge. Patient had no further questions or concerns.
== END 2024-07-05 07:45 | disposition home or self-care (01) ==
LOC: PCU 15:14
PROVIDERS: Admitting Provider Internal Medicine Cardiovascular Disease; Referring Provider Internal Medicine; Visit Provider Internal Medicine Cardiovascular Disease
DX: I47.10 Supraventricular tachycardia, unspecified (principal); F17.210 Nicotine dependence, cigarettes, uncomplicated
CPT/HCPCS: 36415; 76937; 80048; 81025; 85027; 85610; 85730; 93609; 93623; 93653; 99152; 99153; 99221; C1730; C1731; C1894; G0378

== ENCOUNTER → 2025-05-09 | Outpatient (CLI) | payer OTHER, SELFPAY ==
--- OUTSIDE RECORDS SUMMARY | 2025-05-09 07:25 | XMS RPT_ITS | CCD ---
Author Organization [facility] PET CARE ATTENDANT [facility] Care Team Providers Care Architectural Wood Model Maker Name Role Phone No Doctor Assigned, Nodr Primary Care Unavail able Darvin Hughes Admitting Unavailable Darvin Hughes Attending Unavailable No, Physician Primary Care Provider Unavailabl e DOYLE PUENTES Attending Unavailable NO, PHYSICIAN Primary Care Unavailable DOYLE PUENTES Attending Unavailable NO, PHYSICIAN Primary Care Unavailable DOYLE PUENTES Attending Unavailable NO, PHYSICIAN Primary Care Unavailable DOYLE PUENTES Admitting Unavailable DOYLE PUENTES Referring Unavailable NO, PHYSICIAN Primary Care Unavailable DOYLE PUENTES Attending Unavailable NO, PHYSICIAN Primary Care Unavailable Care Physician, No Primary Primary Care Provider Unavailable Care Physician, No Primary Referring Provider Un available Eddie FINANCIAL BUSINESS ANALYST, ROMA Michele Attending Provider Dr. Antoinette Coffey Attending Provider LALIT HACKETT Attending Unavailable GENERIC PROVIDER, NO ASSIGNED PCP Primary Care Unavailable Model, Trell Consulting Unavailable Model, Trell Attending Unavailable Model, Trell Referring Unavailable Care Physician, No Primary Primary Care Unava ilable Model, Trell Referring Unavailable Care Physician, No Primary Primary Care Unava ilable Quique HULL, Darvin Spaulding Attending Unavailable Model, Trell Consulting Unavailable Kishan BREANNE, Allen Chi Attending Unavailable Care Physician, No Primary Primary Care Unava ilable Care Physician, No Primary Primary Care Unava ilable Dario Dos Santos Attending Unavailable Sunita TAVERA, Sruthi Oneal Attending Unavail able Sruthi Helms Referring Unavail able Care Physician, No Primary Primary Care Unava ilable Kishan RAYMUNDO, Allen Chi Attending Unavailable Care Physician, No Primary Primary Care Unava ilable Sruthi Helms Referring Unavail able Sruthi Helms Attending Unavail able Care Physician, No Primary Primary Care Unava ilable Yolanda, Trell Referring Unavailable Rogelio Narayanan Admitting Unavailable Rogelio Narayanan Attending Unavailable Care Physician, No Primary Primary Care Unava ilable Sruthi Helms Attending Unavail able Care Physician, No Primary Primary Care Unava ilable Care Physician, No Primary Referring Unava ilable Sruthi Helms Attending Unavail able Care Physician, No Primary Referring Unava ilable Care Physician, No Primary Primary Care Unava ilable Sruthi Helms Referring Unavail able Balta Maldonado Attending Unavailable Care Physician, No Primary Primary Care Unava ilable Yolanda, Trell Referring Unavailable Rogelio Narayanan Admitting Unavailable Rogelio Narayanan Consulting Rogelio Garcia Attending Unavailable Care Physician, No Primary Primary Care Unava ilable Allergies Allergy Classification Reported Allergen(s) Allergy Type Date of Onset Reaction(s) Facility (1 source) No Known Medication Allergies; Translations: [No Known Medication Allergies] Propensity to adverse reactions to drug (disorder) [facility] Repository Medications Current Medications Medication Drug Class(es) Dates Sig (Normalized) Sig (Original) cetirizine hydrochloride 10 mg oral capsule (3 sources) Histamine-1 Receptor Antagonist Start: 10-01-2021 take 1 capsule by mouth once daily Cetirizine (Zyrtec) 10 mg capsule Active 10 MG PO DAILY October 01, 2021 1:34pm megestrol acetate 40 mg oral tablet (1 source) Progestin Start: 10-24-2021 Megestrol Active 40 MG PO TWICE A DAY 60 October 24, 2021 12:00am 2-3x daily until bleeding stop for three days then once daily until gone. Multivitamin With Minerals (Hair,Skin And Nails) tablet (3 sources) Start: 10-01-2021 take 1 tablet by mouth once daily Multivitamin With Minerals (Hair,Skin And Nails) tablet Active 1 TABLET PO DAILY October 01, 2021 1:34pm Start: 10-01-2021 take 1 tablet by deb th once daily Multivitamin With Minerals (Hair,Skin And Nails) tablet Active 1 TABLET PO DAILY October 01, 2021 12:00am norethindrone acetate 5 mg oral tablet (3 sources) Start: 05-25-2022 take 1 tablet by mouth three times daily, then take 1 tablet by mouth twice daily Norethindrone Acetate (Aygestin) 5 mg tablet Active 5 MG PO .COMPLEX 45 October 01, 2021 2:05pm 5 mg PO tid until bleeding stops X 24 hr then bid to finish Rx pseudoephedrine hydrochloride 30 mg oral tablet (3 sources) alpha-Adrenerg ic Agonist Start: 10-01-2021 take 1 tablet by mouth once Pseudoephedrine Hcl (Sudafed) 30 mg tablet Active 30 MG PO ONCE October 01, 2021 1:35pm Completed/Discontinued Medications Medication Drug Class(es) Dates Sig (Normalized) Sig (Original) Cephalexin (4 sources) Cephalosporin Antibacterial End: 09-14-2018 cephalexin (KEFLEX ORAL) Take by mouth . 0 09/14/2018 Discontinued cephalexin (KEFL EX ORAL) Take by mouth . 0 Active Problems Active Problems Problem Classification Problem Date Documented Date Episodic/Chronic Menstrual disorders (7 sources) Menorrhagia; Translations: [Excessive and frequent menstruation with regular cycle] Chronic Other female genital disorders (3 sources) Enlarged uterus; Translations: [Hypertrophy of uterus] Episodic Other female genital disorders (3 sources) Hypertrophy of uterus; Translations: [Hypertrophy of uterus] Episodic Unclassified (2 sources) Supraventricular tachycardia, unspecified; Translations: [Supraventricular tachycardia, unspecified] Onset: 07-21-2024 Past or Other Problems Problem Classification Problem Date Documented Da te Episodic/Chronic Cardiac dysrhythmias (2 sources) Palpitations; Translations: [Palpitations] Onset: 10-09-2024 Episodic Influenza (2 sources) Influenza due to other identified influenza virus with other respiratory manifestations; Translations: [Influenza due to other identified influenza virus with other respiratory manifestations] Onset: 06-20-2023 Episodic Nonspecific chest pain (1 source) Chest pain, unspecified; Translations: [Chest pain, unspecified] Onset: 05-08-2024 Episodic Other injuries and conditions due to external causes (8 sources) Muscle and tendon injury; Translations: [Laceration of muscle, fascia and tendon of triceps, right arm, initial encounter] Onset: 07-26-2018 07-26-2018 Episodic Results Test Name Value Interpretation Reference Range Facility COVID 19 AG RAPID (SUNG Valverde)on 02-12-2025 SARS-CoV-2 (COVID-19) RNA HUANG+probe Ql (Unsp spec) *Negative results from patients with symptom onset beyond five days should be treated as presumptive and confirmed by a molecular assay if clinically necessary. Negative results should not be used as the sole basis for treatment or for patient management. SARS-CoV-2 Ag Resp Ql IA.rapid *Positive results do not differentiate between SARS-CoV and SARS-CoV-2. If differentiation of the specific SARS virus is desired an additional sample and an additional order is required. SARS-CoV-2 Ag Resp Ql IA.rapid * This test has not been FDA cleared or approved; the test has been authorized by FDA under an Emergency Use Authorization (EAU) for use by laboratories certified under CLIA that meet the requirements to perform moderate, high, or waived complexity tests. SARS-CoV-2 Ag Resp Ql IA.rapid Normal Reference Range: Negative SARS-CoV-2 (COVID 19) Negative RAPID METHOD [employer] COVID19 Ag Card Normal [facility] Comment on above: Performed By: #### M 100.505 #### [facility] [address] [place], [address] Cardiology Visit Reporton Cardiology Visit Report [facility] [address] [place] [address] OFFICE VISIT Date of Service: 09/29/24 MR#: [id number] Acct: [id number] Name: SANDRA MORRIS Rep #: [id number] : 1975 Provider: LIANG Alcantar Age/Sex: 49/F Location: [facility] Status: Signed HPI HPI History of Present Illness Details: Pleasant 49-year-old lady with no previous cardiac history who presented to the emergency room after she was noted to have an episode of palpitations which started suddenly in 2023. 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 Her pulse was taken at about 240 bpm and an EKG was done quickly which demonstrated a narrow complex tachycardia with a rate of 221 bpm. Patient has continued to have episodes of SVT. She is able to stop them on her own with basal vagal maneuvers. She states that these occur approximately once per month. Patient did undergo an EP study on July 04, 2024. She did not have any inducible SVT at baseline or on Isopril. She did undergo a slow pathway ablation. Pt has had some palpitations since then. She has noticed a higher HR, however she is off of her metoprolol. She has not had any pounding feeling that she had prior to her ablation. Intake Vital Signs 06/02/24 08:38 09/29/24 06:54 Height 5 ft 5 in 5 ft 5 in Weight: 122 lb BMI 20.2 BP 113/78 Blood Pressure Location Lt brachial Position Sitting Respiration 18 Pulse 87 Pulse Source Monitor Pulse Oximetry (%) 97 Intake Visit Reasons: 3 M FU Second Baller Required: No Is patient in pain?: No Allergies No Known Allergies Allergy (Verified 09/29/24 08:17) Medications ???Medication ???Instructions ???Recorded ???Confirmed ???Type cetirizine 10 mg capsule (Zyrtec) 10 mg PO DAILY PRN ALLERGIES 09/0809/29/24 History multivitamin with minerals 1 tab PO DAILY vitamin 10/01/21 History (Hair,Skin and Nails tablet) Ejection fraction %: 60 Have you fallen in the past year?: Yes PFSH Medical History Palpitations SVT (supraventricular tachycardia) Near syncope Allergic contact dermatitis due to plant Surgical History S/P removal of ovarian cyst History of cholecystectomy H/O tubal ligation Family History Mother COPD (chronic obstructive pulmonary disease) Alzheimer's dementia Heart disease Hypertension Father Heart disease Aortic aneurysm Grandmother Heart disease Diabetes Cancer Uncle Lung cancer Social History household members: children current occupational status: employed 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 Status: Current every day smoker tobacco type: cigarettes alcohol intake: never substance use type: does not use diet: other what type of physical activity do you participate in: walking frequency: 3-4 times per week seatbelt use: always do you feel safe at home: Yes additional social history: single ROS Const Const: Negative for fatigue, weakness, headache(s) or frequent falls Eyes Eyes: Negative for blurry vision ENT ENT: Negative for headache(s), dizziness or Nosebleed/epistaxis Cardio Chest Pain: No Palpitations: No Edema: None Muscle aches with walking: None Resp Respiratory: Negative for SOB with activity, SOB at rest or SOB orthopnea SOB lying down GI GI: Negative nausea, vomiting, heartburn, bright, red blood in stools or black,tarry stools : Negative for hematuria Neuro Neuro: Negative for dizziness, lightheadedness, near syncope, syncope, frequent falls, headache(s), weakness or blurry vision Endo Endo: Negative for fatigue Cardiology Exam Const Appearance: cooperative, no acute distress and well developed Orientation: alert, awake and oriented x3 Head Head: normocephalic and atraumatic Mouth: moist mucous membranes Eyes General: appearance normal, both eyes and all related structures Conjunctivae: conjunctivae normal Pupils: PERRL EOM: EOM intact bilaterally Neck Neck: normal visual inspection, no lymphadenopathy and no JVD Carotids: Negative bruit Neck Mass: Negative Neck mass Chest Chest inspection: normal inspection of the chest and symmetric chest movement Auscultation: Bilateral: Clear to Auscultation Cardio Palpation: normal PMI Rate: regular rate Rhythm: regular rhythm Heart sounds: S1 normal and S2 normal; Negative rub, gallop or murmur GI GI: normal to inspection, soft, no hepatosplenomegaly and bowel sounds present; Negative tender Neuro General: patient alert, patient awake, patient oriented x (more content not included)... Normal [facility] Basic Metabolic Profile (BMP )on 07-05-2024 Anion gap [Moles/Vol] 15 mmol/L Normal 5-15 [facility] Comment on above: Performed By: #### L 300.3900, L100.0500, L300.4310, L500.2500 ####[facility] [address] [place], [address] BUN/CRE 21.4 RATIO High 10-20 [facility] Comment on above: Performed By: #### L 300.3900, L100.0500, L300.4310, L500.2500 ####[facility] [address] [place], [address] Calcium [Mass/Vol] 8.7 mg/dL Normal 7.6-11.0 [facility] Comment on above: Performed By: #### L 300.3900, L100.0500, L300.4310, L500.2500 ####[facility] [address] [place], [address] Chloride [Moles/Vol] 104 mmol/L Normal 96-108 [facility] Comment on above: Performed By: #### L 300.3900, L100.0500, L300.4310, L500.2500 ####[facility] [address] [place], [address] CO2 [Moles/Vol] 20.1 mmol/L Low 22.0-29.0 [facility] Comment on above: Performed By: #### L 300.3900, L100.0500, L300.4310, L500.2500 ####[facility] [address] [place], [address] Creatinine [Mass/Vol] 0.6 mg/dL Normal 0.6-1.0 [facility] Comment on above: Performed By: #### L 300.3900, L100.0500, L300.4310, L500.2500 ####[facility] [address] [place], [address] ECRCL 102.09 ml/min Normal [facility] Comment on above: Performed By: #### L 300.3900, L100.0500, L300.4310, L500.2500 ####[facility] [address] [place], [address] GFR/1.73 sq M.predicted among non-blacks MDRD (S/P/Bld) [Vol rate/Area] 112 mL/min/{1.73_m2} Normal >60 [facility] Comment on above: Result Comment: mL/m in/1.73m2 CKD-EPI Creatinine Equation (2020) Performed By: #### L 300.3900, L100.0500, L300.4310, L500.2500 ####[facility] [address] [place], [address] Glucose [Mass/Vol] 143 mg/dL High 70-99 [facility] Comment on above: Performed By: #### L 300.3900, L100.0500, L300.4310, L500.2500 ####[facility] [address] [place], [address] Potassium [Moles/Vol] 4.1 mmol/L Normal 3.3-5.1 [facility] Comment on above: Performed By: #### L 300.3900, L100.0500, L300.4310, L500.2500 ####[facility] [address] [place], [address] Sodium [Moles/Vol] 138 mmol/L Normal 133-145 [facility] Comment on above: Performed By: #### L 300.3900, L100.0500, L300.4310, L500.2500 ####[facility] [address] [place], [address] Urea nitrogen [Mass/Vol] 12 mg/dL Normal 4-19 [facility] Comment on above: Performed By: #### L 300.3900, L100.0500, L300.4310, L500.2500 ####[facility] [address] [place], [address] CBC-Complete Blood Cnt No Di ffon 07-05-2024 Erythrocyte distribution width (RBC) [Ratio] 12.5 % Normal 11.6-14.6 [facility] Comment on above: Performed By: #### L 300.3900, L100.0500, L300.4310, L500.2500 #### [facility] [address] [place], [address] Hematocrit (Bld) [Volume fraction] 39.0 % Normal 37-47 [facility] Comment on above: Performed By: #### L 300.3900, L100.0500, L300.4310, L500.2500 #### [facility] [address] [place], [address] Hemoglobin (Bld) [Mass/Vol] 13.1 g/dL Normal 12.0-15.0 [facility] Comment on above: Performed By: #### L 300.3900, L100.0500, L300.4310, L500.2500 #### [facility] [address] [place], [address] MCH (RBC) [Entitic mass] 30.9 pg Normal 27.0-32.0 [facility] Comment on above: Performed By: #### L 300.3900, L100.0500, L300.4310, L500.2500 #### [facility] [address] [place], [address] MCHC (RBC) [Mass/Vol] 33.6 g/dL Normal 32-36 [facility] Comment on above: Performed By: #### L 300.3900, L100.0500, L300.4310, L500.2500 #### [facility] [address] [place], [address] MCV (RBC) [Entitic vol] 92.0 fL Normal 81-99 [facility] Comment on above: Performed By: #### L 300.3900, L100.0500, L300.4310, L500.2500 #### [facility] [address] [place], [address] Platelet mean volume (Bld) [Entitic vol] 8.8 fL Normal 6.2-12.0 [facility] Comment on above: Performed By: #### L 300.3900, L100.0500, L300.4310, L500.2500 #### [facility] [address] [place], [address] Platelets (Bld) [#/Vol] 232 10*3/uL Normal 150-450 [facility] Comment on above: Performed By: #### L 300.3900, L100.0500, L300.4310, L500.2500 #### [facility] [address] [place], [address] RBC (Bld) [#/Vol] 4.24 10*6/uL Normal 4.2-5.4 [facility] Comment on above: Performed By: #### L 300.3900, L100.0500, L300.4310, L500.2500 #### [facility] [address] [place], [address] RDW SD 42.5 fl Normal 35.1-43.9 [facility] Comment on above: Performed By: #### L 300.3900, L100.0500, L300.4310, L500.2500 #### [facility] [address] [place], [address] WBC (Bld) [#/Vol] 6.7 10*3/uL Normal 4.4-11.0 [facility] Comment on above: Performed By: #### L 300.3900, L100.0500, L300.4310, L500.2500 #### [facility] [address] [place], [address] Partial Thromboplast Timeon 07-05-2024 aPTT Coag (Bld) [Time] 31.6 s Normal 24.1-36.2 [facility] Comment on above: Performed By: #### L 300.3900, L100.0500, L300.4310, L500.2500 #### [facility] [address] [place], [address] Prothrombin Time w/INRon INR Coag (PPP) [Relative time] 1.0 {INR} Normal [facility] Comment on above: Performed By: #### L 300.3900, L100.0500, L300.4310, L500.2500 #### [facility] [address] [place], [address] PT Coag (PPP) [Time] 13.0 s Normal 11.7-14.9 [facility] Comment on above: Performed By: #### L 300.3900, L100.0500, L300.4310, L500.2500 #### [facility] [address] [place], [address] CVS/ELECTROSTUon 07-04-2024 CVS/ELECTROSTU [facility] [address] [place] [address] Electrophysiology Report MR#: [id number] Acct: [id number] Name: SANDRA MORRIS Rep #: [id number] : 1975 F 49 From: Trell Guerrero MD PCP: Care Physician,No Primary Status: [facility] Study: Date of Exam: Exam# Ordering Dr: Electrophysiology Report Electrophysiology Report Sandra Morris is a 49 year old female who has a past medical history of SVT, who presented to the [place] EP lab for further evaluation regarding SVT. Procedure Summary * Patient prepped and draped in sterile fashion. * Right groin infiltrated with lidocaine. * Right femoral access obtained x3 with ultrasound guidance. * Sheaths inserted into femoral veins via Seldinger technique. * Catheters inserted through right groin. * EPS results listed below in conclusions. * Isuprel testing performed. * Sheaths pulled in lab and hemostasis achieved per protocol. Findings: BASELINE ISUPREL SCL: 670ms SCL: 550ms AH: 101ms AH: 64ms HV: 40ms HV: 40ms Maximum SNRT: 840ms CSNRT: 170ms AVBCL: 280ms AVBCL: 210ms VABCL: 390ms VABCL: 230ms Decremental Conduction? Y Decremental Conduction? Y Concentric: Y Concentric: Y A ERP 200ms @ 500 ms AVN ERP <200ms @ 400ms VAERP 320ms @ 500ms CS pacing AVB 290ms BASELINE ISUPREL Inducible Tachycardia: N Inducible Tachycardia: N Ablation of: slow pathway Ablation Parameters: power titrated Ablation Catheter Used: non-irrigated 4mm Results of Ablation Site of Ablation: slow pathway Successful, elimination of cross-over Post Ablation Testing BASELINE SCL: 650ms AH: 70ms HV: 40ms AVBCL: 410ms AVN ERP 320ms @ 600ms VA BCL: 430ms Conclusions 1. Baseline rhythm is sinus rhythm. 2. Normal sinus node function (longest SNRT 840ms). 3. Normal AV node function, normal infranodal conduction (HV= 40ms). 4. No evidence of accessory pathway. 5. 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 VA conduction present and is decremental.??? 7. No inducible SVT at baseline state or on isuprel 8. She has a narrow complex tachycardia documented at an ER visit, which terminated with vagal manuevers. On isuprel she had an echo beat, and had cross over at baseline and on isuprel, consistent with dual AV jasmin physiology. Therefore a slow pathway ablation was performed. 9. Power titration of ablation performed with 4mm catheter at the slow pathway region performed, resulting in multiple junctional beats. 10. Repeat testing performed after ablation with elimination of cross-over. 11. Sheaths removed in the EP lab. Recommendations 1. Stop metoprolol 2. Bedrest for 3 hours 3. The patient can continue to follow-up with Dr. Maldonado. 07/04/24 1229 Date Trell Guerrero MD CC: Dr. Balta Maldonado MD; Dr. Trell Guerrero MD; No Primary Care Physician Date Dictated: 07/04/248 Date Transcribed: 07/04/241217 Block Sealer: SS Signed Normal [facility] ,Urineon 07-04-2024 Beta HCG ( test) Ql (U) Negative Normal [facility] Comment on above: Result Comment: Very dilute urine specimens, as indicated by a low specific gravity, may not contain delivery representative levels of hCG. If is still suspected, a first morning urine specimen should be collected 48 hours later and tested. Performed By: #### L 400.7600 #### [facility] [address] [place], [address] Basic Metabolic Profile (BMP )on 06-16-2024 BUN/CRE 14.0 RATIO Normal 10-20 [facility] Comment on above: Performed By: #### L 500.2500, L100.0100 #### [facility] [address] [place], [address] CA,Total 9.4 mg/dL Normal 8.5-10.1 [facility] Comment on above: Performed By: #### L 500.2500, L100.0100 #### [facility] [address] [place], [address] Chloride [Moles/Vol] 106 mmol/L Normal 98-107 [facility] Comment on above: Performed By: #### L 500.2500, L100.0100 #### [facility] [address] [place], [address] CO2 [Moles/Vol] 26.0 mmol/L Normal 21.0-32.0 [facility] Comment on above: Performed By: #### L 500.2500, L100.0100 #### [facility] [address] [place], [address] Creatinine [Mass/Vol] 0.78 mg/dL Normal 0.55-1.02 [facility] Comment on above: Result Comment: The validity of the calculated GFR GFRAA in patients over 70 years has not been determined. Clinical correlation is essential. Performed By: #### L 500.2500, L100.0100 #### [facility] [address] [place], [address] EST GFR - AA 101 mL/min Normal >60 [facility] Comment on above: Result Comment: Afri can Malian GFR Calc Performed By: #### L 500.2500, L100.0100 #### [facility] [address] [place], [address] GAP 6 Normal 5-15 [facility] Comment on above: Performed By: #### L 500.2500, L100.0100 #### [facility] [address] [place], [address] GFR/1.73 sq M.predicted among non-blacks MDRD (S/P/Bld) [Vol rate/Area] 83 mL/min/{1.73_m2} Normal >60 [facility] Comment on above: Result Comment: Non- GFR Calc Performed By: #### L 500.2500, L100.0100 #### [facility] [address] [place], [address] Glucose [Mass/Vol] 140 mg/dL High 74-106 [facility] Comment on above: Result Comment: Fast ing Glucose result greater than or equal to 126 mg/dL suggests DIABETES MELLITUS per A.D.A. criteria. Performed By: #### L 500.2500, L100.0100 #### [facility] [address] [place], [address] Potassium [Moles/Vol] 3.9 mmol/L Normal 3.5-5.1 [facility] Comment on above: Performed By: #### L 500.2500, L100.0100 #### [facility] [address] [place], [address] Sodium [Moles/Vol] 138 mmol/L Normal 136-145 [facility] [facility] Comment on above: Performed By: #### L 500.2500, L100.0100 #### [facility] [address] [place], [address] Urea nitrogen [Mass/Vol] 11 mg/dL Normal 7-18 [facility] Comment on above: Performed By: #### L 500.2500, L100.0100 #### [facility] [address] [place], [address] CBC W/Diff, Automatedon 02-0 7-2024 Absolute Lymph 2.16 X10 3/uL Normal 0.83-4.51 [facility] Comment on above: Performed By: #### L 500.2500, L100.0100 #### [facility] [address] [place], [address] Absolute Neut 4.1 X10 3/uL Normal 2.0-7.7 [facility] Comment on above: Performed By: #### L 500.2500, L100.0100 #### [facility] [address] [place], [address] Basophils/100 WBC (Bld) 1.1 % High 0-1 [facility] Comment on above: Performed By: #### L 500.2500, L100.0100 #### [facility] [address] [place], [address] Eosinophils/100 WBC (Bld) 1.5 % Normal 0-5 [facility] Comment on above: Performed By: #### L 500.2500, L100.0100 #### [facility] [address] [place], [address] Erythrocyte distribution width (RBC) [Ratio] 12.6 % Normal 11.6-14.6 [facility] Comment on above: Performed By: #### L 500.2500, L100.0100 #### [facility] [address] [place], [address] Hematocrit (Bld) [Volume fraction] 45.8 % Normal 37-47 [facility] Comment on above: Performed By: #### L 500.2500, L100.0100 #### [facility] [address] [place], [address] Hemoglobin (Bld) [Mass/Vol] 14.9 g/dL Normal 12.0-15.0 [facility] Comment on above: Performed By: #### L 500.2500, L100.0100 #### [facility] [address] [place], [address] IG% 0.100 Normal 0.0-0.9 [facility] Comment on above: Result Comment: IG% - Immature Granulocytes (promyelocytes, myelocytes and metamyelocytes) > 1% indicates that a LEFT SHIFT is Present. Performed By: #### L 500.2500, L100.0100 #### [facility] [address] [place], [address] Lymphocytes/100 WBC (Bld) 30.4 % Normal 19-41 [facility] Comment on above: Performed By: #### L 500.2500, L100.0100 #### [facility] [address] [place], [address] MCH (RBC) [Entitic mass] 30.2 pg Normal 27.0-32.0 [facility] Comment on above: Performed By: #### L 500.2500, L100.0100 #### [facility] [address] [place], [address] MCHC (RBC) [Mass/Vol] 32.5 g/dL Normal 32-36 [facility] Comment on above: Performed By: #### L 500.2500, L100.0100 #### [facility] [address] [place], [address] MCV (RBC) [Entitic vol] 92.7 fL Normal 81-99 [facility] Comment on above: Performed By: #### L 500.2500, L100.0100 #### [facility] [address] [place], [address] Monocytes/100 WBC (Bld) 8.7 % Normal 0-10 [facility] Comment on above: Performed By: #### L 500.2500, L100.0100 #### [facility] [address] [place], [address] Neutrophils/100 WBC (Bld) 58.2 % Normal 47-70 [facility] Comment on above: Performed By: #### L 500.2500, L100.0100 #### [facility] [address] [place], [address] Nucleated RBC (Bld) [#/Vol] 0 10*3/uL Normal 0-5 [facility] Comment on above: Performed By: #### L 500.2500, L100.0100 #### [facility] [address] [place], [address] Platelet mean volume (Bld) [Entitic vol] 8.8 fL Normal 6.2-12.0 [facility] Comment on above: Performed By: #### L 500.2500, L100.0100 #### [facility] [address] [place], [address] Platelets (Bld) [#/Vol] 357 10*3/uL Normal 150-450 [facility] Comment on above: Performed By: #### L 500.2500, L100.0100 #### [facility] [address] [place], [address] RBC (Bld) [#/Vol] 4.94 10*6/uL Normal 4.2-5.4 [facility] Comment on above: Performed By: #### L 500.2500, L100.0100 #### [facility] [address] [place], [address] RDW SD 43.0 fl Normal 35.1-43.9 [facility] Comment on above: Performed By: #### L 500.2500, L100.0100 #### [facility] [address] [place], [address] WBC (Bld) [#/Vol] 7.1 10*3/uL Normal 4.4-11.0 [facility] Comment on above: Performed By: #### L 500.2500, L100.0100 #### [facility] [address] [place], [address] Cardiology Visit Reporton Cardiology Visit Report [facility] [address] [place] [address] OFFICE VISIT Date of Service: 06/02/24 MR#: [id number] Acct: [id number] Name: SANDRA MORRIS Rep #: [id number] : 1975 Provider: LIANG Alcantar Age/Sex: 49/F Location: [facility] Status: Signed HPI HPI History of Present Illness Details: Pleasant 49-year-old lady with no previous cardiac history who presented to the emergency room after she was noted to have an episode of palpitations which started suddenly. 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 Her pulse was taken at about 240 bpm and an EKG was done quickly which demonstrated a narrow complex tachycardia with a rate of 221 bpm. Patient has continued to have episodes of SVT. She is able to stop them on her own with basal vagal maneuvers. She states that these occur approximately once per month. She feels lightheaded and dizzy with this. She feels short of breath when she has this. Intake Vital Signs 12/01/23 13:22 04/06/24 07:59 06/02/24 08:38 Height 5 ft 5 in 5 ft 5 in 5 ft 5 in Weight: 123 lb BMI 20.5 BP 113/70 Blood Pressure Location Lt brachial Position Sitting Respiration 16 Pulse 78 Pulse Source NIBP Intake Visit Reasons: 6 M FU Second Baller Required: No Is patient in pain?: No Allergies No Known Allergies Allergy (Verified 06/02/24 08:41) Medications ???Medication ???Instructions ???Recorded ???Confirmed ???Type cetirizine 10 mg capsule (Zyrtec) 10 mg PO DAILY PRN ALLERGIES 10/01/21 06/02/24 History multivitamin with minerals 1 tab PO DAILY 10/01/21 06/02/24 History (Hair,Skin and Nails tablet) metoprolol succinate 25 mg 25 mg PO DAILY #30 tabs 01/18/24 06/02/24 Rx tablet,extended release 24 hr Ejection fraction %: 60 Have you fallen in the past year?: No PFSH Medical History Palpitations SVT (supraventricular tachycardia) Near syncope Allergic contact dermatitis due to plant Surgical History S/P removal of ovarian cyst History of cholecystectomy H/O tubal ligation Family History Mother COPD (chronic obstructive pulmonary disease) Alzheimer's dementia Heart disease Hypertension Father Heart disease Aortic aneurysm Grandmother Heart disease Diabetes Cancer Uncle Lung cancer Social History household members: children current occupational status: employed 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 Status: Current every day smoker tobacco type: cigarettes alcohol intake: never substance use type: does not use diet: other what type of physical activity do you participate in: walking frequency: 3-4 times per week seatbelt use: always do you feel safe at home: Yes additional social history: single ROS Const Const: Negative for fatigue or weakness Eyes Eyes: Negative for change in vision ENT ENT: Negative for dizziness or balance problems Cardio Chest Pain: No Palpitations: Yes Edema: None Resp Respiratory: Negative for SOB with activity, SOB at rest or SOB orthopnea SOB lying down GI GI: Negative nausea or heartburn Musc Musc: Negative for balance problems Neuro Neuro: Negative for dizziness, lightheadedness, near syncope, syncope or weakness Endo Endo: Negative for fatigue Cardiology Exam Const Appearance: cooperative, no acute distress and well developed Orientation: alert, awake and oriented x3 Head Head: normocephalic and atraumatic Mouth: moist mucous membranes Eyes General: appearance normal, both eyes and all related structures Conjunctivae: conjunctivae normal Pupils: PERRL EOM: EOM intact bilaterally Neck Neck: normal visual inspection, no lymphadenopathy and no JVD Carotids: Negative bruit Neck Mass: Negative Neck mass Chest Chest inspection: normal inspection of the chest and symmetric chest movement Auscultation: Bilateral: Clear to Auscultation Cardio Palpation: normal PMI Rate: regular rate Rhythm: regular rhythm Heart sounds: S1 normal and S2 normal; Negative rub, gallop or murmur GI GI: normal to inspection, soft, no hepatosplenomegaly and bowel sounds present; Negative tender Neuro General: patient alert, patient awake, patient oriented x3, CN's II-XI intact bilaterally and moves all extremities Extremities Pulses: Normal: Right Posterior Tibial Pulse, Left Posterior Tibial Pulse, Right Radial Pulse and Left Radial Pulse Lower Extremity Edema: None: Bilateral Psych Psychological: normal affect Supplemental Info Supplemental Information Holter monit (more content not included)... Normal [facility] Basic Metabolic Profile (BMP )on 04-06-2024 BUN/CRE 26.8 RATIO High 10-20 [facility] Comment on above: Order Comment: 'TROP ' Serial specimen #1, #2 or #3: 1 Performed By: #### L 500.2500, L501.4020, L100.0100 ####[facility] [address] [place], [address] CA,Total 8.7 mg/dL Normal 8.5-10.1 [facility] Comment on above: Order Comment: 'TROP ' Serial specimen #1, #2 or #3: 1 Performed By: #### L 500.2500, L501.4020, L100.0100 ####[facility] [address] [place], [address] Chloride [Moles/Vol] 106 mmol/L Normal 98-107 [facility] Comment on above: Order Comment: 'TROP ' Serial specimen #1, #2 or #3: 1 Performed By: #### L 500.2500, L501.4020, L100.0100 ####[facility] [address] [place], [address] CO2 [Moles/Vol] 28.0 mmol/L Normal 21.0-32.0 [facility] Comment on above: Order Comment: 'TROP ' Serial specimen #1, #2 or #3: 1 Performed By: #### L 500.2500, L501.4020, L100.0100 ####[facility] [address] [place], [address] Creatinine [Mass/Vol] 0.64 mg/dL Normal 0.55-1.02 [facility] Comment on above: Order Comment: 'TROP ' Serial specimen #1, #2 or #3: 1 Result Comment: The validity of the calculated GFR GFRAA in patients over 70 years has not been determined. Clinical correlation is essential. Performed By: #### L 500.2500, L501.4020, L100.0100 ####[facility] [address] [place], [address] ECRCL 97.78 ml/min Normal [facility] Comment on above: Order Comment: 'TROP ' Serial specimen #1, #2 or #3: 1 Performed By: #### L 500.2500, L501.4020, L100.0100 ####[facility] [address] [place], [address] EST GFR - AA 129 mL/min Normal >60 [facility] Comment on above: Order Comment: 'TROP ' Serial specimen #1, #2 or #3: 1 Result Comment: Afri can Malian GFR Calc Performed By: #### L 500.2500, L501.4020, L100.0100 ####[facility] [address] [place], [address] GAP 5 Normal 5-15 [facility] Comment on above: Order Comment: 'TROP ' Serial specimen #1, #2 or #3: 1 Performed By: #### L 500.2500, L501.4020, L100.0100 ####[facility] [address] [place], [address] GFR/1.73 sq M.predicted among non-blacks MDRD (S/P/Bld) [Vol rate/Area] 107 mL/min/{1.73_m2} Normal >60 [facility] Comment on above: Order Comment: 'TROP ' Serial specimen #1, #2 or #3: 1 Result Comment: Non- GFR Calc Performed By: #### L 500.2500, L501.4020, L100.0100 ####[facility] [address] [place], [address] Glucose [Mass/Vol] 112 mg/dL High 74-106 [facility] Comment on above: Order Comment: 'TROP ' Serial specimen #1, #2 or #3: 1 Result Comment: Fast ing Glucose result from 100 to 125 mg/dL suggests IMPAIRED HOMEOSTASIS per A.D.A. criteria. Performed By: #### L 500.2500, L501.4020, L100.0100 ####[facility] [address] [place], [address] Potassium [Moles/Vol] 4.2 mmol/L Normal 3.5-5.1 [facility] Comment on above: Order Comment: 'TROP ' Serial specimen #1, #2 or #3: 1 Performed By: #### L 500.2500, L501.4020, L100.0100 ####[facility] [address] [place], [address] Sodium [Moles/Vol] 138 mmol/L Normal 136-145 [facility] Comment on above: Order Comment: 'TROP ' Serial specimen #1, #2 or #3: 1 Performed By: #### L 500.2500, L501.4020, L100.0100 ####[facility] [address] [place], [address] Urea nitrogen [Mass/Vol] 17 mg/dL Normal 7-18 [facility] Comment on above: Order Comment: 'TROP ' Serial specimen #1, #2 or #3: 1 Performed By: #### L 500.2500, L501.4020, L100.0100 ####[facility] [address] [place], [address] CBC W/Diff, Automatedon 03-11 Absolute Lymph 2.64 X10 3/uL Normal 0.83-4.51 [facility] Comment on above: Performed By: #### L 500.2500, L501.4020, L100.0100 ####[facility] [address] [place], [address] Absolute Neut 4.0 X10 3/uL Normal 2.0-7.7 [facility] Comment on above: Performed By: #### L 500.2500, L501.4020, L100.0100 ####[facility] [address] [place], [address] Basophils/100 WBC (Bld) 0.9 % Normal 0-1 [facility] Comment on above: Performed By: #### L 500.2500, L501.4020, L100.0100 ####[facility] [address] [place], [address] Eosinophils/100 WBC (Bld) 2.1 % Normal 0-5 [facility] Comment on above: Performed By: #### L 500.2500, L501.4020, L100.0100 ####[facility] [address] [place], [address] Erythrocyte distribution width (RBC) [Ratio] 13.2 % Normal 11.6-14.6 [facility] Comment on above: Performed By: #### L 500.2500, L501.4020, L100.0100 ####[facility] [address] [place], [address] Hematocrit (Bld) [Volume fraction] 40.5 % Normal 37-47 [facility] Comment on above: Performed By: #### L 500.2500, L501.4020, L100.0100 ####[facility] [address] [place], [address] Hemoglobin (Bld) [Mass/Vol] 13.6 g/dL Normal 12.0-15.0 [facility] Comment on above: Performed By: #### L 500.2500, L501.4020, L100.0100 ####[facility] [address] [place], [address] IG% 0.300 Normal 0.0-0.9 [facility] Comment on above: Result Comment: IG% - Immature Granulocytes (promyelocytes, myelocytes and metamyelocytes) > 1% indicates that a LEFT SHIFT is Present. Performed By: #### L 500.2500, L501.4020, L100.0100 ####[facility] [address] [place], [address] Lymphocytes/100 WBC (Bld) 35.3 % Normal 19-41 [facility] Comment on above: Performed By: #### L 500.2500, L501.4020, L100.0100 ####[facility] [address] [place], [address] MCH (RBC) [Entitic mass] 30.7 pg Normal 27.0-32.0 [facility] Comment on above: Performed By: #### L 500.2500, L501.4020, L100.0100 ####[facility] [address] [place], [address] MCHC (RBC) [Mass/Vol] 33.6 g/dL Normal 32-36 [facility] Comment on above: Performed By: #### L 500.2500, L501.4020, L100.0100 ####[facility] [address] [place], [address] MCV (RBC) [Entitic vol] 91.4 fL Normal 81-99 [facility] Comment on above: Performed By: #### L 500.2500, L501.4020, L100.0100 ####[facility] [address] [place], [address] Monocytes/100 WBC (Bld) 7.5 % Normal 0-10 [facility] Comment on above: Performed By: #### L 500.2500, L501.4020, L100.0100 ####[facility] [address] [place], [address] Neutrophils/100 WBC (Bld) 53.9 % Normal 47-70 [facility] Comment on above: Performed By: #### L 500.2500, L501.4020, L100.0100 ####[facility] [address] [place], [address] Nucleated RBC (Bld) [#/Vol] 0 10*3/uL Normal 0-5 [facility] Comment on above: Performed By: #### L 500.2500, L501.4020, L100.0100 ####[facility] [address] [place], [address] Platelet mean volume (Bld) [Entitic vol] 8.8 fL Normal 6.2-12.0 [facility] Comment on above: Performed By: #### L 500.2500, L501.4020, L100.0100 ####[facility] [address] [place], [address] Platelets (Bld) [#/Vol] 344 10*3/uL Normal 150-450 [facility] Comment on above: Performed By: #### L 500.2500, L501.4020, L100.0100 ####[facility] [address] [place], [address] RBC (Bld) [#/Vol] 4.43 10*6/uL Normal 4.2-5.4 [facility] Comment on above: Performed By: #### L 500.2500, L501.4020, L100.0100 ####[facility] [address] [place], [address] RDW SD 44.2 fl High 35.1-43.9 [facility] Comment on above: Performed By: #### L 500.2500, L501.4020, L100.0100 ####[facility] [address] [place], [address] WBC (Bld) [#/Vol] 7.5 10*3/uL Normal 4.4-11.0 [facility] Comment on above: Performed By: #### L 500.2500, L501.4020, L100.0100 ####[facility] [address] [place], [address] Chest 1 View (Portable)on Chest 1 View (Portable) [facility] Imaging Services [address] [place] [address] Chest 1 View (Portable) MR#: [id number] Acct: [id number] Name: SANDRA MORRIS Rep #: [id number] : 1975 F 49 From: Agapito Lerma MD PCP: Care Physician,No Primary Status: [facility] ER Study: Chest 1 View (Portable) Date of Exam: 04/06/24 Exam# [id number] Ordering Dr: [place] [id number] EXAM: XR CHEST, 1 VIEW CLINICAL INDICATION: chest pain TECHNIQUE: Frontal view of the chest. COMPARISON: XR Chest dated 12/15/2023 FINDINGS: LUNGS AND PLEURAL SPACES: Normal. No consolidation or edema. No pneumothorax. No effusion. HEART: Normal heart size. MEDIASTINUM: No mediastinal or hilar mass. BONES/JOINTS: No acute abnormality. RAD/Chest 1 View (Portable) IMPRESSION: No acute cardiopulmonary abnormality. No interval change. Electronically Signed: Agapito Lerma MD at 8:57 EST , CC: Dr. Dario Dos Santos DO; No Primary Care Physician Block Sealer: Signed Normal [facility] Emergency Department Summary on 04-06-2024 Emergency Department Summary [facility] Medical Records Department [address] [place] [address] Emergency Department Summary 04/06/24 MR#: [id number] Acct: [id number] Name: SANDRA MORRIS Rep #: [id number] : 1975 49 From: Dario Dos Santos DO PCP: Care Physician,No Primary Status:DEP ER Location: ED HPI History of Present Illness Chief Complaint: Chest Pain Informant: patient Narrative Narrative: 49-year-old female presenting to the emergency room with a chief complaint of chest pain neck pain. Patient states that since Wednesday she has had pain left side of her neck that is worse with sidebending to the right. She figured that it was muscular in nature but is persisted. She has also developed a pain which was constant initially but now intermittent located in her lower midsternal chest. Patient has a history of SVT and is on metoprolol. She has followed with cardiology ordered Holter monitor and has had echocardiogram. Tonight she was at work nursing advised her to seek evaluation. She denies any pleuritic chest pain dyspnea. [facility] Medical History Palpitations SVT (supraventricular tachycardia) Near syncope Allergic contact dermatitis due to plant Home Medications ???Medication ???Instructions ???Recorded ???Last Taken ???Type cetirizine 10 mg capsule (Zyrtec) 10 mg PO DAILY PRN ALLERGIES 10/01/21 Unknown History multivitamin with minerals 1 tab PO DAILY 10/01/21 Unknown History (Hair,Skin and Nails tablet) metoprolol succinate 25 mg 25 mg PO DAILY #30 tabs 01/18/24 Unknown Rx tablet,extended release 24 hr Allergy/AdvReac Type Severity Reaction Status Date / Time No Known Allergies Allergy Verified 12/15/23 19:37 Family History Mother COPD (chronic obstructive pulmonary disease) Alzheimer's dementia Heart disease Hypertension Father Heart disease Aortic aneurysm Grandmother Heart disease Diabetes Cancer Uncle Lung cancer Surgical History S/P removal of ovarian cyst History of cholecystectomy H/O tubal ligation Social History household members: children current occupational status: employed 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 Status: Current 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 day smoker tobacco type: cigarettes alcohol intake: never substance use type: does not use diet: other what type of physical activity do you participate in: walking frequency: 3-4 times per week seatbelt use: always do you feel safe at home: Yes additional social history: single ROS ROS ED Constitutional Constitutional ED: Denies chills, fever(s) or weight loss Eyes Eyes: Denies change in vision or diplopia ENT ENT ED: Denies ear pain, rhinorrhea or sore throat Cardiovascular Cardiovascular: Reports chest pain; Denies orthopnea, palpitations or racing heartbeat Respiratory/Chest Respiratory/Chest: Denies cough, dyspnea or orthopnea Gastrointestinal Gastrointestinal: Denies abdominal pain, diarrhea, nausea or vomiting Genitourinary Genitourinary ED: Denies dysuria, hematuria or urinary frequency Musculoskeletal Musculoskeletal: Reports neck pain; Denies arthralgias or myalgias Integumentary Denies abscess or rash Neurologic Neurologic: Denies headache(s) or weakness Psychiatric Psychiatric: Denies anxiety, depression, suicidal ideation or suicidal thoughts Endocrine Endocrinology: Denies polydipsia, polyphagia or polyuria Allergic/Immunologic Allergic/Immunologic ED: Denies mouth swelling, tongue swelling or urticaria EXAM Physical Exam Const Vital Signs: 04/06/24 07:59 04/06/24 08:58 04/06/24 09:00 Temperature 96.9 F L Temperature Source Temporal Pulse Rate 87 77 Respiratory Rate 19 H Blood Pressure 124/59 H 111/54 L 111/54 L Blood Pressure Mean 80 73 73 Pulse Ox 98 04/06/24 09:55 Temperature 97.9 F Temperature Source Pulse Rate 81 Respiratory Rate 16 Blood Pressure 108/72 Blood Pressure Mean 84 Pulse Ox 100 Positive well nourished and well developed General Appearance ED: well developed HEENT Reports normocephalic, head/scalp atraumatic and moist mucous membranes Eyes PERRL and EOMs intact bilaterally Neck no lymphadenopathy, supple and no JVD Resp normal respiratory effort and clear to auscultation bilaterally Cardio regular rate, regular rhythm and no murmurs GI normal to inspection, nondistended, normoactive bowel sounds and non-tender Palpation: soft Back/Spine no CVA tenderness and normal ROM Extremity normal to inspection General Extremety ED: Negative for edema General Extremity: Negative for edema Neuro oriented x3 an (more content not included)... Normal [facility] L501.4020on 04-06-2024 TROPONIN-I HS 3 pg/mL Normal 3.0-54.0 [facility] Comment on above: Order Comment: 'TROP ' Serial specimen #1, #2 or #3: 1 Result Comment: Plea se Note: New Test Units and Gender Specific Reference Ranges. For more information see Policy Stat Procedure Emma High Sensitivity Troponin (TNIH) and attachments. Performed By: #### L 500.2500, L501.4020, L100.0100 ####[facility] [address] [place], [place], [id number] Influenza virus A and B and SARS-CoV-2 (COVID-19) identified HUANG+probe Nom (Resp)on 06-20-2023 FLUAV RNA HUANG+probe Ql (Resp) Detected Abnormal Not Detected [facility] Comment on above: Order Comment: This assay has received FDA Emergency Use Authorization (EUA) and is only authorized for the duration of time that circumstances exist to justify the authorization of the emergency use of in vitro diagnostic tests for the detection of SARS-CoV-2 virus and/or diagnosis of COVID-19 infection under section 564(b)(1) of the Act, 21 U.S.C. 360bbb-3(b)(1). Testing for SARS-CoV-2 is only recommended for patients who meet current clinical and/or epidemiological criteria as defined by federal, state, or local public health directives. This assay is an in vitro diagnostic nucleic acid amplification test for the qualitative detection of SARS-CoV-2, Influenza A, and Influenza B from nasopharyngeal specimens and has been validated for use at [facility]. Negative results do not preclude COVID-19 infections or Influenza A/B infections, and should not be used as the sole basis for diagnosis, treatment, or other management decisions. If Influenza A/B and RSV PCR results are negative, testing for Parainfluenza virus, Adenovirus and Metapneumovirus is routinely performed for [facility] pediatric oncology and intensive care inpatients, and is available on other patients by placing an add-on request. Performed By: #### [id number] #### SABRINA SHELBY ([id number]) [facility] ([facility]) [address] [place] [address] FLUBV RNA HUANG+probe Ql (Resp) Not detected Normal Not Detected [facility] Comment on above: Order Comment: This assay has received FDA Emergency Use Authorization (EUA) and is only authorized for the duration of time that circumstances exist to justify the authorization of the emergency use of in vitro diagnostic tests for the detection of SARS-CoV-2 virus and/or diagnosis of COVID-19 infection under section 564(b)(1) of the Act, 21 U.S.C. 360bbb-3(b)(1). Testing for SARS-CoV-2 is only recommended for patients who meet current clinical and/or epidemiological criteria as defined by federal, state, or local public health directives. This assay is an in vitro diagnostic nucleic acid amplification test for the qualitative detection of SARS-CoV-2, Influenza A, and Influenza B from nasopharyngeal specimens and has been validated for use at [facility]. Negative results do not preclude COVID-19 infections or Influenza A/B infections, and should not be used as the sole basis for diagnosis, treatment, or other management decisions. If Influenza A/B and RSV PCR results are negative, testing for Parainfluenza virus, Adenovirus and Metapneumovirus is routinely performed for [facility] pediatric oncology and intensive care inpatients, and is available on other patients by placing an add-on request. Performed By: #### 9 [id number] #### SABRINA SHELBY ([id number]) [facility] ([facility]) [address] [place] [address] SARS-CoV-2 (COVID-19) RNA HUANG+probe Ql (Resp) Not detected Normal Not Detected [facility] Comment on above: Order Comment: This assay has received FDA Emergency Use Authorization (EUA) and is only authorized for the duration of time that circumstances exist to justify the authorization of the emergency use of in vitro diagnostic tests for the detection of SARS-CoV-2 virus and/or diagnosis of COVID-19 infection under section 564(b)(1) of the Act, 21 U.S.C. 360bbb-3(b)(1). Testing for SARS-CoV-2 is only recommended for patients who meet current clinical and/or epidemiological criteria as defined by federal, state, or local public health directives. This assay is an in vitro diagnostic nucleic acid amplification test for the qualitative detection of SARS-CoV-2, Influenza A, and Influenza B from nasopharyngeal specimens and has been validated for use at [facility]. Negative results do not preclude COVID-19 infections or Influenza A/B infections, and should not be used as the sole basis for diagnosis, treatment, or other management decisions. If Influenza A/B and RSV PCR results are negative, testing for Parainfluenza virus, Adenovirus and Metapneumovirus is routinely performed for [facility] pediatric oncology and intensive care inpatients, and is available on other patients by placing an add-on request. Performed By: #### 9 [id number] #### BENNETT HERON ([id number]) [facility] ([facility]) [address] [place] [address] XR CHEST 2 VIEWSon XR CHEST 2 VIEWS Interpreted By: Ivanna Bojorquez, STUDY: XR CHEST 2 VIEWS; 06/20/2023 1:06 am INDICATION: Signs/Symptoms:Shortnes s of breath. COMPARISON: None. ACCESSION NUMBER(S): [id number] ORDERING CLINICIAN: LALIT HACKETT FINDINGS: PA and lateral radiographs of the chest were provided. CARDIOMEDIASTINAL SILHOUETTE: Cardiomediastinal silhouette is normal in size and configuration. LUNGS: Lungs are well aerated without evidence of consolidation or pleural effusion. ABDOMEN: No remarkable upper abdominal findings. BONES: No acute osseous changes. IMPRESSION: 1. No evidence of consolidation or pleural effusion. MACRO: None Signed by: Ivanna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 Satisfactory for nereida luation. Endocervical and/or squamous metaplasticcells (endocervical component) are present. Clinical Note 10-01-2021 Note Date & Type Note Facility 10-01-2021 Note [facility] Work Phone: Pap Smear Specimen Adequacy October 01, 2021 3:06pm Comment . Satisfactory for evaluation. Endocervical and/or squamous metaplasticcells (endocervical component) are present. Comment on above: Satisfactory for nereida luation. Endocervical and/or squamous metaplasticcells (endocervical component) are present. Evaluation note Note Date & Type Note Facility Evaluation note Diagnosis Onset Date Enlarged uterus acute Menorrhagia with regular cycle acute [facility] Work Phone: Evaluation note Note Date & Type Note Facility Evaluation note Diagnosis Onset Date Menorrhagia with regular cycle acute Enlarged uterus resolved Menorrhagia with regular cycle acute [facility] Work Phone: Summary Purpose Family History No Family History Records Found Relationship Condition Age at Onset Recorded Date/T justyna mother Chronic obstructive pulmonary disease Unk nown Alzheimer's dementia Unknown Cardiac disease Unknown Hypertension Unknown father Cardiac disease Unknown Aortic aneurysm Unknown grandmother Cardiac disease Unknown Diabetes mellitus Unknown Malignant neoplasm Unknown uncle Malignant neoplasm of lung Unknown Advance Directives No Advanced Directives Records Found Advance Directive Response Recorded Date/ Time Living Will No January 27, 2021 8:35am Power of Implementation Technician No January 8:35am Advance Directive Response Recorded Date/ Time Living Will No October 14, 2021 9 :15am Power of Implementation Technician No October 14, 2021 9:15am History of Present Illness * Doyle Puentes MD - 08/03/2018 2:25 PM EDT Dictation on: 08/03/2018 2:26 PM by: DOYLE PUENTES [[id number]] in this encounter* Doyle Puentes MD - 08/17/2018 2:31 PM EDT Sandra is seen for followup of her right elbow laceration. Her wound is hypersensitive, and she reports pain with flexion and extension of her elbow, and she was using her hand with a knife and peeling and had her hand fall asleep and go numb, and she had a tendency for some numbness prior to this episode. She has full range of motion of her fingers, intact radial nerve sensation in her right hand on the extensor side, and has good extension to her thumb and all of her fingers. Elbow range of motion is full, but she is very hypersensitive. I think she has probably got a lacerated sensory branch of the radial nerve in her elbow area laterally. There is no instability, and her triceps appearsto be intact. I have told her that we need to, at this point in time, work on range of motion and strengthening, work through the pain. I will send her to physical therapy. Perhaps they can use some modalities as well as strengthen her elbow. If the numbness persists and becomes an issue, then EMGsand nerve conduction velocities would be in order to look for any nerve damage, which I doubt, or ca rpal tunnel syndrome, which I think is more likely. I will see her back in 4 weeks. Tentatively, welowll switch her [id number] date until September 21. in this encounter* Doyle Puentes MD - 09/14/2018 3:06 PM EDT Sandra is seen for followup of her right elbow laceration. She feels it has returned to normal strength now. She has full range of motion. Wounds are excellent without any sign of infection. She has excellent triceps and biceps strength. I think she can return to work now without restrictions and p.r.n. return. documented in this encounter* Doyle Puentes MD - 07/26/2018 5:08 PM EDT Dictation on: 07/26/2018 5:10 PM by: DOYLE PUENTES [[id number]] in this encounter Assessments Diagnosis Laceration of muscle, fascia and tendon of triceps, right arm, initial encounter- Primary Diagnosis Laceration of muscle, fascia and tendon of triceps, right arm, initial encounter- Primary Diagnosis Laceration of muscle, fascia and tendon of triceps, right arm, initial encounter- Primary Diagnosis Laceration of muscle, fascia and tendon of triceps, right arm, initial encounter- Primary Reason for Referral Status Reason Specialty Diagnoses / Procedures Referred By Contact Referred To Contact Authorized Specialty Services Required/Patie nt's Best Interest Physical Therapy Diagnoses Laceration of muscle, fascia and tendon of triceps, right arm, initial encounter Doyle Puentes MD [address] [place] [address] [place] [address] [place] [address] Phone: [phone] Chief Complaint and Reason for Visit Chief Complaint AUB referred by Stac ey Beun Reason for Visit Enlarged uterus Menorrhagia with regular cycle Chief Complaint AUB referred by Stac ey Beun SCREENING MENORRHAGIA WITH REGULAR CYCLE Reason for Visit Enlarged uterus Menorrhagia with regular cycle Chief Complaint AUB referred by Stac ey Beun SCREENING MENORRHAGIA WITH REGULAR CYCLE discuss surgical options EMB Reason for Visit Menorrhagia with reg ular cycle Enlarged uterus Menorrhagia with regular cycle Additional Source Comments INFORMATION SOURCE (unrecogn ized section and content) DATE CREATED AUTHOR 07/24/2018 [facility] DATE CREATED AUTHOR AUTHOR'S ORGANIZ ATION 07/26/2018 [facility] DATE CREATED AUTHOR AUTHOR'S ORGANIZ ATION 12/16/2018 [facility] DATE CREATED AUTHOR AUTHOR'S ORGANIZ ATION 12/23/2023 [facility] DATE CREATED AUTHOR AUTHOR'S ORGANIZ ATION 03/11/2025 [facility] Reason for Visit (unrecogniz ed section and content) Reason Comments Suture / Staple Removal Follow-up Pain Reason Comments Follow-up Reason Comments Follow-up Reason Comments Injury Goals (unrecognized section and content) Goals may be documented in a n alternate sectionGoals may be documented in an alternate sectionGoals may be documented in an alternate section FOR RECORDS PERTAINING TO PATIENTS WHO ARE OR HAVE BEEN ENROLLED IN A CHEMICAL DEPENDENCY/SUBSTANCEABUSE PROGRAM, SOME INFORMATION MAY BE OMITTED. This clinical summary was aggregated from multiple sources. Caution should be exercised in using it in the provision of clinical care. This summary normalizes information from multiple sources, and as a consequence, information in this document may materially change the coding, format and clinical context of patient data. In addition, data may be omitted in some cases. CLINICAL DECISIONS SHOULD BE BASED ON THE PRIMARY CLINICAL RECORDS. [facility] [employer] provides no warranty or guarantee of the accuracy or completeness of information in this document.
[2025-05-09 07:59] LABS: Hematocrit 39.1 % (37-47); Hemoglobin 13.2 g/dL (12.0-15.0); Immature Granulocytes Count 0.020 X10^3/uL (0.0-0.0); Mean Corp Hgb Conc 33.8 g/dL (32-36); Mean Corpuscular Volume 90.7 fL (81-99); Mean Platelet Vol. 8.8 fl (6.2-12.0); NRBC Flagged by Analyzer 0 % (0-5); Platelet Count 310 K/mm3 (150-450); RBC Distribution Width CV 12.7 % (11.6-14.6); RBC Distribution Width SD 42.3 fl (35.1-43.9); Red Blood Count 4.31 M/mm3 (4.2-5.4); White Blood Count 7.1 K/mm3 (4.4-11.0)
[2025-05-09 08:44] LABS: Anion Gap 11 (7-18); BUN 9 mg/dL (4-19); BUN/Creat Ratio 12.1 RATIO (10-20); Calcium,Total 9.8 mg/dL (7.6-11.0); Carbon Dioxide 27.0 mmol/L (20.0-29.0); Chloride 100 mmol/L (96-106); Free T3 4.2 pg/mL (2.18-3.98); Glucose 136 mg/dL (70-99); Potassium 4.2 mmol/L (3.5-5.1)
== END | disposition home or self-care (01) ==
LOC: LAB 07:23
PROVIDERS: Referring Provider Physician Assistant Medical; Visit Provider Physician Assistant Medical
DX: R00.2 Palpitations (principal)
CPT/HCPCS: 36415; 80048; 84439; 84443; 84481; 85025